=== PATIENT | male | born 1955 | race Caucasian/White ===

== ENCOUNTER 2020-10-12 13:59 | Inpatient (IN) | payer BC, OTHER ==
--- NOTE | 2020-10-12 14:42 | EDM.PDOC ---
ED HPI GENERAL MEDICAL PROBLEM - General Chief Complaint: Skin Complaint Stated Complaint: ABSCESS ON ANKLE SENT BY CLINIC Time Seen by Provider: 10/12/20 14:46 Source of Information: Reports: Patient History Limitations: Reports: No Limitations - History of Present Illness INITIAL COMMENTS - FREE TEXT/NARRATIVE: 64-year-old male [facility] [place]. The history suggest that he has had a chronic ulceration posterior aspect of his right heel near the insertion of the Achilles tendon for several months if not years. 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 When he presented to the clinic today he was mostly for pain control. He reports pain is getting worse in the right heel. He was started on tramadol in the past with no relief. They felt his wound looked much more angry and infected today and thus sent him to the ED for further evaluation. Patient has inflammation erythema over both anterior knees I suspect he is following with friction blisters to initiate ulceration and infection in this area as well. Apparently had a incision and drainage of infected sebaceous cyst anterior left knee in August of this year. Both lower extremities are edematous and very painful to touch worse on the right as compared to the left. The ulceration on the back of his right heel is greater than 8 cm in diameter. It is full-thickness ulceration however the Achilles tendon and fascia are not clinically involved. Plan routine labs to be done to include a glycosylated protein is has been told that he has diabetes and then told that he does not etc. Patient clinically has rosacea involving his face treated with various antibiotics. Onset: Gradual, Unknown/Unsure (At least 2 to 3 months. 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 Denies: Activity, Exercise, Lifting, Sick Contact, Trauma Associated Symptoms: Reports: Cough, cough w sputum, Malaise, Shortness of B reath. Denies: Confusion, Chest Pain, Diaphoresis (Chronic cough from smoking. Occasional brown sputum production.), Fever/Chills, Headaches, Loss of Appetite, Nausea/Vomiting, Rash (On exertion.), Seizure, Syncope, Weakness Treatments DIRECTOR ENERGY: Reports: Other (see below) (Patient is on gabapentin 3 times daily for neurogenic pain in his feet.) Right Ankle Pain Score (Numeric/FACES): 9 - Related Data Allergies Allergy/AdvReac Type Severity Reaction Status Date / Time bee venom protein (honey bee) Allergy Other Verified 10/12/20 18:50 poison oak extract Allergy Other Verified 10/12/20 18:50 Home Meds: Home Meds Amitriptyline [Elavil] 50 mg PO BEDTIME 10/12/20 [History] Aspirin [Halfprin] 81 mg PO Q24H 10/12/20 [History] Cholecalciferol (Vitamin D3) [Vitamin D3] 1,000 mcg PO ASDIRECTED 10/12/20 [History] Cyclobenzaprine [Flexeril] 10 mg PO TID PRN 10/12/20 [History] DULoxetine HCl [Cymbalta] 60 mg PO Q24H 10/12/20 [History] Folic Acid 800 mcg PO DAILY 10/12/20 [History] Gabapentin [Neurontin] 300 mg PO BID 10/12/20 [History] Ibuprofen 400 mg PO DAILY PRN 10/12/20 [History] Methotrexate 20 mg PO WEEKLY 10/12/20 [History] Niacin [Niacin ER] 1,000 mg PO DAILY 10/12/20 [History] Nystatin [Nystatin Crm] 1 applic TOP BID PRN 10/12/20 [History] Patient's Own Medication [Ptom] 15 ml SSPIT Q6H PRN 10/12/20 [History] QUEtiapine Fumarate [Quetiapine Fumarate] 300 mg PO Q24H 10/12/20 [History] Rosuvastatin Calcium 20 mg PO BEDTIME 10/12/20 [History] atenoloL [Tenormin] 50 mg PO PCDINNER 10/12/20 [History] hydrOXYzine HCL [Hydroxyzine HCl] 50 mg PO DAILY 10/12/20 [History] metFORMIN HCl [Glucophage] 1,000 mg PO BIDMEALS 10/12/20 [History] Past Medical History Cardiovascular History: Reports: Hypertension, GA, Stents Respiratory History: Reports: COPD ([id number] history of cigarette smoking) Genitourinary History: Reports: BPH Musculoskeletal History: Reports: Osteoarthritis Other Musculoskeletal History: Previous fractured pelvis treated nonoperatively. Severe degenerative arthritis and disc disease cervical spine with cervical spine surgery and I believe fusion. Psychiatric History: Reports: Addiction (Alcohol), Mood Swings (Labeled as having a mood disorder.) Social & Family History - Tobacco Use Tobacco Use Status *Q: Current Every Day Tobacco User Tobacco Use Within Last Twelve Months: Cigarettes ([id number] history.) - Alcohol Use Alcohol Use History: Yes Days Per Week of Alcohol Use: 7 - Living Situation & Occupation Living situation: Reports: Single Occupation: Retired ED ROS GENERAL - Review of Systems Review Of Systems: See Below Constitutional: Reports: Malaise. Denies: Fever, Chills, Decreased Appetite, Weight Loss HEENT: Reports: Glasses (For reading.) Respiratory: Reports: Shortness of Breath, Wheezing, Cough. Denies: Pleuritic Chest Pain (Occasional wheezing), Hemoptysis (Smoker's cough. Occasional brown sputum production) Cardiovascular: Reports: Blood Pressure Problem, Dyspnea on Exertion, Edema (Both lower extremities which he states is improved first thing in the morning but returns within the hour of being up for the day.). Denies: Chest Pain, Cl audication, Lightheadedness, Orthopnea, Palpitations Endocrine: Reports: Polyuria GI/Abdominal: Reports: Constipation (Occasional problems with constipation.) : Reports: Frequency, Other (Denies any nocturia.) Musculoskeletal: Reports: Neck Pain, Shoulder Pain, Back Pain, Joint Pain (Knees and hips at times.) Skin: Reports: Erythema (Both lower extremities are warm to touch and tender to touch. Right is worse than the left. Both feet and lower extremities are edematous with 3-4+ pitting edema), Wound (Chronic ulcerated wound posterior right heel for at least 2 to 3 months. Apparently erythema and ulceration anterior aspect of both knees for the last 2 to 3 months as well. Hard to nail down the duration of ulceration.) Neurological: Reports: Paresthesia (Intermittent severe lancinating shooting pains suggesting neurogenic etiology of pain in both lower extremities.), Difficulty Walking (Patient has been unable to wear shoe for several months. He recently bought some crocs with open heel so that he can weight-bear but even that is very painful today.) Psychiatric: Reports: Mood Lability, Other (Suspect). Denies: Hallucinations Hematologic/Lymphatic: Reports: No Symptoms ( chronic alcohol use.) Immunologic: Reports: No Symptoms ED EXAM, SKIN/RASH Exam: See Below Exam Limited By: No Limitations General Appearance: Alert, WD/WN, Mild Distress, Other (Patient has a very ruborous complexion. Clinically he has rosacea involving his forehead nose and facial cheeks. Temperature was 38.2 degrees with a heart rate of 110. Respiratory to 20 with O2 sats of 95%. BP mildly elevated 1 5596.) Eye Exam: Bilateral Eye: Normal Inspection (No scleral icterus or blepharal pallor.), PERRL Nose: Other (Rosacea over his nose with erythema and mild rhinophyma.) Throat/Mouth: Other (Tongue is mildly dry and coated. Mild diffuse erythema of the posterior oropharynx from cigarette smoking.). No: Normal Teeth Head: Atraumatic, Normocephalic Neck: Limited Range of Motion, Tender Lateral, Other (Midline surgical scar from previous cervical spine surgery.). No: Full Range of Motion Respiratory/Chest: No Accessory Muscle Use, Respiratory Distress, Decreased Breath Sounds (Mild tachypnea at rest.), Wheezing ( Decreased air entry at the lower 30% lung null bilaterally.). No: Lungs Clear, Normal Breath Sounds, R ales, Rhonchi ( Scattered expiratory wheezes posterior lung null.) Cardiovascular: No Gallop, No Murmur, No Rub, Tachycardia (Sinus tachycardia at the bedside of 110 to 114/min). No: Normal Peripheral Pulses (No pulses could be palpated in either foot partial limited by pain but also marked edema both lower extremities.), No Edema Peripheral Pulses: 2+: Carotid (L), Carotid (R), Radial (L), Radial (R), Popliteal (L), Popliteal (R) GI/Abdominal: Normal Bowel Sounds, Soft, Non-Tender, No Organomegaly, No Mass, Pelvis Stable, Hernia, Other (Left inguinal hernia. Patient has diastases recti of the upper abdominal muscles. Does have lymphadenopathy mildly tender right inguinal area) Back Exam: Decreased Range of Motion (Patient had pain even sitting up in the bed, look at his back and listen to lung sounds.) Extremities: Increased Warmth (Both lower extremities up to the tibial tuberosities bilaterally. There is also mild tenderness over the erythema over the patella and ulcerations over both legs.), Other (Patient has 3+ to 4+ pitting edema both lower extremities. Up to the knees bilaterally. There is erythema over both knees with ulcerations both knees measuring 2 cm in length and width. They appear to be full-thickness ulcerations with secondary i nfection. The right heel has an 8 cm full-thickne) Neurological: Alert, Oriented, CN II-XII Intact, Normal Cognition Psychiatric: Normal Affect, Normal Mood Skin: Warm, Dry, Intact, Decubitus (Over the right heel at the insertion of the Achilles tendon.), Erythema, Increased Warmth. No: Mottled, Pallor, Wound/Incision Location, Skin: Lower Extremity, Right (Cellulitis over the right knee and right), Lower Extremity, Left (Erythema and ulceration over the left patella and knee.) Characteristics: Other (Ulcerations over both anterior knees as well as right posterior heel) #1 Interpretation EKG Date: 10/12/20 Time: 16:23 Rhythm: Other Rate (Beats/Min): 104 [place]: LAD-Left [place] Deviation (Mild left axis deviation -11 degrees) P-Wave: Enlarged (Left atrial hypertrophy) QRS: Other (Mildly decreased voltage limb leads Q waves leads V1 V2 compared with old anteroseptal myocardial infarction) ST-T: Other (Nonspecific T wave flattening lead III and aVL also lead V2.) QT: Normal EKG Interpretation Comments: Abnormal ECG Course - Vital Signs Last Recorded V/S: Last Vital Signs Temp 36.7 C 10/12/20 18:23 Pulse 103 H 10/12/20 18:23 Resp 16 10/12/20 18:23 BP 139/76 10/12/20 18:23 Pulse Ox 94 L 10/12/20 18:23 - Orders/Labs/Meds Orders: Active Orders 24 hr Category Date Time Status CULTURE BLOOD [BC] Stat Lab 10/12/20 15:05 Received CULTURE BLOOD [BC] Stat Lab 10/12/20 15:10 Received Sodium Chloride 0.9% [Saline Flush] Med 10/12/20 14:48 Active 10 ml FLUSH ASDIRECTED PRN Blood Culture x2 Reflex Set [OM.PC] Stat Oth 10/12/20 14:48 Ordered Peripheral IV Insertion Adult [OM.PC] Stat Ot 10/12/20 14:47 Ordered Medication Orders Acetaminophen (Acetaminophen 325 Mg Tab) 650 mg PO Q4H PRN PRN Reason: Pain (Mild 1-3)/fever Albuterol/Ipratropium (Albuterol/Ipratropium 3.0-0.5 Mg/3 Ml Neb Soln) 3 ml NEB Q4H PRN PRN Reason: Shortness Of Breath/wheezing Amitriptyline HCl (Amitriptyline 25 Mg Tab) 50 mg PO BEDTIME [facility] Aspirin (Aspirin 81 Mg Tab.Ec) 81 mg PO Q24H [facility] Atenolol (Atenolol 50 Mg Tab) 50 mg PO PCDINNER [facility] Folic Acid (Folic Acid 1 Mg Tab) 0.8 mg PO DAILY [facility] Gabapentin (Gabapentin 300 Mg Cap) 300 mg PO BID [facility] Heparin Sodium (Porcine) (Heparin Sodium 5,000 Units/Ml Vial) 5,000 units SUBCUT Q8H [facility] Hydromorphone HCl (Hydromorphone 0.5 Mg/0.5 Ml Syringe) 0.5 mg IVPUSH Q1H PRN PRN Reason: Pain (severe 7-10) Hydroxyzine HCl (Hydroxyzine Hcl 50 Mg Tab) 50 mg PO DAILY [facility] Magnesium Sulfate/Dextrose 1 (gm/ Premix) 100 mls @ 100 mls/hr IV Q1H [facility] Stop: 10/12/20 21:19 Piperacillin Sod/Tazobactam (Sod 4.5 gm/ Sodium Chloride) 100 mls @ 200 mls/hr IV ONETIME ONE Stop: 10/12/20 20:59 Last Admin: 10/12/20 20:21 Dose: 200 mls/hr Documented by: NATI Piperacillin Sod/Tazobactam (Sod 4.5 gm/ Sodium Chloride) 100 mls @ 25 mls/hr IV Q8H [facility] Insulin Human Lispro (Insulin Lispro 100 Unit/Ml 10 Ml Vial) 0 unit SUBCUT QIDACANDBED [facility]; Protocol Miscellaneous Information (Remove Nicotine 14 Mg Patch) 1 ea TRDERM DAILY@1900 [facility] Nicotine (Nicotine 14 Mg/24 Hr Patch) 14 mg TRDERM DAILY@1900 [facility] Last Admin: 10/12/20 20:26 Dose: Not Given Documented by: KAEL Non-Formulary Medication (Duloxetine Hcl) 60 mg PO Q24H [facility] Non-Formulary Medication (Niacin [Niacin Er]) 1,000 mg PO DAILY [facility] Ondansetron HCl (Ondansetron 4 Mg Tab.Dis) 4 mg PO Q4H PRN PRN Reason: nausea, able to take PO Ondansetron HCl (Ondansetron 4 Mg/2 Ml Sdv) 4 mg IV Q6H PRN PRN Reason: Nausea/Vomiting Oxycodone HCl (Oxycodone 5 Mg Tab) 5 mg PO Q4H PRN PRN Reason: Pain (moderate 4-6) Quetiapine Fumarate (Quetiapine 100 Mg Tab) 300 mg PO Q24H [facility] Rosuvastatin Calcium (Rosuvastatin 10 Mg Tab) 20 mg PO BEDTIME [facility] Sodium Chloride (Sodium Chloride 0.9% 10 Ml Syringe) 10 ml FLUSH ASDIRECTED PRN PRN Reason: Keep Vein Open Last Admin: 10/12/20 15:20 Dose: 10 ml Documented by: BRENDAN Temazepam (Temazepam 7.5 Mg Cap) 7.5 mg PO BEDTIME PRN PRN Reason: Sleep Vancomycin HCl (Pharmacy To Dose - Vancomycin) 1 dose .XX ASDIRECTED [facility] Labs: Laboratory Tests 10/12/20 10/12/20 10/12/20 Range/Units 14:30 14:30 14:30 WBC 4.94 (4.23-9.07) K/mm3 RBC 3.20 L (4.63-6.08) M/mm3 Hgb 12.2 L (13.7-17.5) gm/dl Hct 34.9 L (40.1-51.0) % MCV 109.1 H (79.0-92.2) fl MCH 38.1 H (25.7-32.2) pg MCHC 35.0 (32.2-35.5) g/dl RDW Std Deviation 69.2 H (35.1-43.9) fL Plt Count 100 L (163-337) K/mm3 MPV 9.8 (9.4-12.3) fl Neutrophils % (Manual) 89 H (40-60) % Band Neutrophils % 1 (0-10) % Lymphocytes % (Manual) 8 L (20-40) % Atypical Lymphs % 0 % Monocytes % (Manual) 0 L (2-10) % Eosinophils % (Manual) 2 (0.8-7.0) % Basophils % (Manual) 0 L (0.2-1.2) Platelet Estimate Decreased Plt Morphology Comment See note Anisocytosis 1+ slight Macrocytosis 1+ slight RBC Morph Comment Not Reportable ESR 28 H (0-15) mm/hr Sodium 135 L (136-145) mEq/L Potassium 3.7 (3.5-5.1) mEq/L Chloride 100 (98-107) mEq/L Carbon Dioxide 24 (21-32) mEq/L Anion Gap 14.7 (5-15) BUN 12 (7-18) mg/dL Creatinine 0.9 (0.7-1.3) mg/dL Est Cr Clr Drug Dosing 84.49 mL/min Estimated GFR (MDRD) > 60 (>60) mL/min BUN/Creatinine Ratio 13.3 L (14-18) Glucose 154 H (70-99) mg/dL Hemoglobin A1c ( - 5.6) % Lactic Acid (0.4-2.0) mmol/L Calcium 8.3 L (8.5-10.1) mg/dL Magnesium 1.6 L (1.8-2.4) mg/dL Total Bilirubin 1.2 H (0.2-1.0) mg/dL AST 51 H (15-37) U/L ALT 66 H (16-63) U/L Alkaline Phosphatase 81 (46-116) U/L C-Reactive Protein 8.1 H* (<1.0) mg/dL NT-Pro-B Natriuret Pep (0-125) pg/mL Total Protein 6.6 (6.4-8.2) g/dl Albumin 3.1 L (3.4-5.0) g/dl Globulin 3.5 gm/dL Albumin/Globulin Ratio 0.9 L (1-2) Ethyl Alcohol 0.00 (0.00) gm% SARS-CoV-2 RNA (SUSAN) (NEGATIVE) 10/12/20 10/12/20 10/12/20 Range/Units 14:30 14:30 15:10 WBC (4.23-9.07) K/mm3 RBC (4.63-6.08) M/mm3 Hgb (13.7-17.5) gm/dl Hct (40.1-51.0) % MCV (79.0-92.2) fl MCH (25.7-32.2) pg MCHC (32.2-35.5) g/dl RDW Std Deviation (35.1-43.9) fL Plt Count (163-337) K/mm3 MPV (9.4-12.3) fl Neutrophils % (Manual) (40-60) % Band Neutrophils % (0-10) % Lymphocytes % (Manual) (20-40) % Atypical Lymphs % % Monocytes % (Manual) (2-10) % Eosinophils % (Manual) (0.8-7.0) % Basophils % (Manual) (0.2-1.2) Platelet Estimate Plt Morphology Comment Anisocytosis Macrocytosis RBC Morph Comment ESR (0-15) mm/hr Sodium (136-145) mEq/L Potassium (3.5-5.1) mEq/L Chloride (98-107) mEq/L Carbon Dioxide (21-32) mEq/L Anion Gap (5-15) BUN (7-18) mg/dL Creatinine (0.7-1.3) mg/dL Est Cr Clr Drug Dosing mL/min Estimated GFR (MDRD) (>60) mL/min BUN/Creatinine Ratio (14-18) Glucose (70-99) mg/dL Hemoglobin A1c 7.1 H ( - 5.6) % Lactic Acid 1.1 (0.4-2.0) mmol/L Calcium (8.5-10.1) mg/dL Magnesium (1.8-2.4) mg/dL Total Bilirubin (0.2-1.0) mg/dL AST (15-37) U/L ALT (16-63) U/L Alkaline Phosphatase (46-116) U/L C-Reactive Protein (<1.0) mg/dL NT-Pro-B Natriuret Pep 21 (0-125) pg/mL Total Protein (6.4-8.2) g/dl Albumin (3.4-5.0) g/dl Globulin gm/dL Albumin/Globulin Ratio (1-2) Ethyl Alcohol (0.00) gm% SARS-CoV-2 RNA (SUSAN) (NEGATIVE) 10/12/20 Range/Units 15:25 WBC (4.23-9.07) K/mm3 RBC (4.63-6.08) M/mm3 Hgb (13.7-17.5) gm/dl Hct (40.1-51.0) % MCV (79.0-92.2) fl MCH (25.7-32.2) pg MCHC (32.2-35.5) g/dl RDW Std Deviation (35.1-43.9) fL Plt Count (163-337) K/mm3 MPV (9.4-12.3) fl Neutrophils % (Manual) (40-60) % Band Neutrophils % (0-10) % Lymphocytes % (Manual) (20-40) % Atypical Lymphs % % Monocytes % (Manual) (2-10) % Eosinophils % (Manual) (0.8-7.0) % Basophils % (Manual) (0.2-1.2) Platelet Estimate Plt Morphology Comment Anisocytosis Macrocytosis RBC Morph Comment ESR (0-15) mm/hr Sodium (136-145) mEq/L Potassium (3.5-5.1) mEq/L Chloride (98-107) mEq/L Carbon Dioxide (21-32) mEq/L Anion Gap (5-15) BUN (7-18) mg/dL Creatinine (0.7-1.3) mg/dL Est Cr Clr Drug Dosing mL/min Estimated GFR (MDRD) (>60) mL/min BUN/Creatinine Ratio (14-18) Glucose (70-99) mg/dL Hemoglobin A1c ( - 5.6) % Lactic Acid (0.4-2.0) mmol/L Calcium (8.5-10.1) mg/dL Magnesium (1.8-2.4) mg/dL Total Bilirubin (0.2-1.0) mg/dL AST (15-37) U/L ALT (16-63) U/L Alkaline Phosphatase (46-116) U/L C-Reactive Protein (<1.0) mg/dL NT-Pro-B Natriuret Pep (0-125) pg/mL Total Protein (6.4-8.2) g/dl Albumin (3.4-5.0) g/dl Globulin gm/dL Albumin/Globulin Ratio (1-2) Ethyl Alcohol (0.00) gm% SARS-CoV-2 RNA (SUSAN) Negative (NEGATIVE) Meds: Medications Generic Name Dose Route Start Last Admin Trade Name Freq PRN Reason Stop Dose Admin Acetaminophen 650 mg 10/12/20 18:31 Acetaminophen 325 Mg Tab PO Q4H PRN Pain (Mild 1-3)/fever Albuterol/Ipratropium 3 ml 10/12/20 18:31 Albuterol/Ipratropium 3.0-0.5 Mg/3 Ml Neb Soln NEB Q4H PRN Shortness Of Breath/wheezing Amitriptyline HCl 50 mg 10/12/20 21:00 Amitriptyline 25 Mg Tab PO BEDTIME [facility] Aspirin 81 mg 10/13/20 08:00 Aspirin 81 Mg Tab.Ec PO Q24H [facility] Atenolol 50 mg 10/13/20 19:00 Atenolol 50 Mg Tab PO PCDINNER [facility] Folic Acid 0.8 mg 10/13/20 09:00 Folic Acid 1 Mg Tab PO DAILY [facility] Gabapentin 300 mg 10/12/20 21:00 Gabapentin 300 Mg Cap PO BID [facility] Heparin Sodium (Porcine) 5,000 units 10/12/20 21:00 Heparin Sodium 5,000 Units/Ml Vial SUBCUT Q8H [facility] Hydromorphone HCl 0.5 mg 10/12/20 18:31 Hydromorphone 0.5 Mg/0.5 Ml Syringe IVPUSH Q1H PRN Pain (severe 7-10) Hydroxyzine HCl 50 mg 10/13/20 09:00 Hydroxyzine Hcl 50 Mg Tab PO DAILY [facility] Magnesium Sulfate/Dextrose 1 100 mls @ 100 mls/hr 10/12/20 20:20 gm/ Premix IV 10/12/20 21:19 Q1H [facility] Piperacillin Sod/Tazobactam 100 mls @ 200 mls/hr 10/12/20 20:30 10/12/20 20:21 Sod 4.5 gm/ Sodium Chloride IV 10/12/20 20:59 200 mls/hr ONETIME ONE Administration Piperacillin Sod/Tazobactam 100 mls @ 25 mls/hr 10/13/20 04:30 Sod 4.5 gm/ Sodium Chloride IV Q8H [facility] Insulin Human Lispro 0 unit 10/12/20 22:00 Insulin Lispro 100 Unit/Ml 10 Ml Vial SUBCUT QIDACANDBED [facility] Protocol Miscellaneous Information 1 ea 10/13/20 19:00 Remove Nicotine 14 Mg Patch TRDERM DAILY@1900 [facility] Nicotine 14 mg 10/12/20 19:00 10/12/20 20:26 Nicotine 14 Mg/24 Hr Patch TRDERM Not Given DAILY@1900 [facility] Non-Formulary Medication 60 mg 10/13/20 08:00 Duloxetine Hcl PO Q24H [facility] Non-Formulary Medication 1,000 mg 10/13/20 09:00 Niacin [Niacin Er] PO DAILY [facility] Ondansetron HCl 4 mg 10/12/20 18:31 Ondansetron 4 Mg Tab.Dis PO Q4H PRN nausea, able to take PO Ondansetron HCl 4 mg 10/12/20 18:31 Ondansetron 4 Mg/2 Ml Sdv IV Q6H PRN Nausea/Vomiting Oxycodone HCl 5 mg 10/12/20 18:31 Oxycodone 5 Mg Tab PO Q4H PRN Pain (moderate 4-6) Quetiapine Fumarate 300 mg 10/12/20 20:00 Quetiapine 100 Mg Tab PO Q24H [facility] Rosuvastatin Calcium 20 mg 10/12/20 21:00 Rosuvastatin 10 Mg Tab PO BEDTIME [facility] Sodium Chloride 10 ml 10/12/20 14:48 10/12/20 15:20 Sodium Chloride 0.9% 10 Ml Syringe FLUSH 10 ml ASDIRECTED PRN Administration Keep Vein Open Temazepam 7.5 mg 10/12/20 18:31 Temazepam 7.5 Mg Cap PO BEDTIME PRN Sleep Vancomycin HCl 1 dose 10/12/20 19:15 Pharmacy To Dose - Vancomycin .XX ASDIRECTED [facility] Discontinued Medications Generic Name Dose Route Start Last Admin Trade Name Freq PRN Reason Stop Dose Admin Hydromorphone HCl 1 mg 10/12/20 16:01 10/12/20 16:07 Hydromorphone 1 Mg/Ml Syringe IVPUSH 10/12/20 16:02 1 mg ONETIME ONE Administration Hydromorphone HCl 0.5 mg 10/12/20 17:47 10/12/20 17:52 Hydromorphone 0.5 Mg/0.5 Ml Syringe IVPUSH 10/12/20 17:48 0.5 mg ONETIME ONE Administration Sodium Chloride 1,000 mls @ 150 mls/hr 10/12/20 15:00 10/12/20 15:20 Normal Saline IV 150 mls/hr ASDIRECTED [facility] Administration Linezolid 600 mg/ Premix 300 mls @ 300 mls/hr 10/12/20 14:48 10/12/20 15:19 IV 10/12/20 15:47 300 mls/hr ONETIME ONE Administration Piperacillin Sod/Tazobactam 100 mls @ 25 mls/hr 10/12/20 19:00 10/12/20 20:25 Sod 3.375 gm/ Sodium Chloride IV Not Given Q8H [facility] Piperacillin Sod/Tazobactam 100 mls @ 25 mls/hr 10/13/20 04:00 Sod 3.375 gm/ Sodium Chloride IV Q8H [facility] Ondansetron HCl 4 mg 10/12/20 16:01 10/12/20 16:06 Ondansetron 4 Mg/2 Ml Sdv IVPUSH 10/12/20 16:02 4 mg ONETIME ONE Administration - Radiology Interpretation Free Text/Narrative:: 64-year-old male presents to the ED at the request of the [place] clinic here in [place]. By history he has a chronic infected ulcer right posterior heel at the distribution of the Achilles tendon insertion into his calcaneus. By history has had this for several months and perhaps even years. Patient has erythema and ulceration over both patellas as well. He denies any recent falls or injuries. Patient denies any noted fever chills nausea or vomiting. He smokes a pack of cigarettes daily and does have a chronic smoker's cough. Patient has been treated apparently with several courses of antibiotics without improvement. Currently pain is bad enough in his right lower extremity that he can hardly stand it. He has been treated with tramadol which he states did not help at all. - Re-Assessments/Exams Free Text/Narrative Re-Assessment/Exam: 10/12/20 16:03 White count is normal at 4.94. The differential reveals 89% neutrophils and 1% bands cells. Hemoglobin is 12.2 with hematocrit of 34.9. MCV is elevated at 109.1 suggesting he drinks alcohol on a very regular basis. Platelet count is low at 100,000. Sed rate is 28. Sodium slightly low at 135 with a potassium of 3.7. Chloride 100 with a bicarb of 24. Anion gap is normal at 14.7. BUN is 12 with a creatinine of 0.9 and a GFR greater than 60. Glucose is 154. Hemoglobin A1c is 7.1 indicating that he does have mild type 2 diabetes. Lactic acid is 1.1. Calcium is 8.3. Magnesium low at 1.6. Total bilirubin is 1.2 mildly elevated. AST slightly elevated at 51 and ALT is mildly elevated at 66. Alkaline phosphatase is 81. C-reactive protein is elevated at 8.1. BNP is 21. Albumin fraction is low at 3.1 with a total protein is 6.6. Blood alcohol at this time is 0.00. Decision made to pursue imaging of the right foot by way of CT scan to rule out osteomyelitis as MRI is currently not available. 10/12/20 17:30 chest x-ray done portably reveals a slight groundglass appearance to the left lower lobe of the lung. Cardiac silhouette and mediastinum appear normal. Mild tortuous thoracic aorta appreciated. No pleural effusions. No pneumothorax. Of note is COVID-[address] of the right foot has been completed. On my evaluation I do not see any evidence of bone involvement or osteomyelitis. No periosteal reaction. No evidence of underlying fracture. There is soft tissue inflammation at the site of the ulcer posterior aspect of the right heel. Skin defect is believed visualized in the sagittal projection. The skin defect is at the level of the distal Achilles tendon. The Achilles tendon may be exposed or nearly exposed. No soft tissue gas in the region. No soft tissue gas elsewhere. The Achilles tendon appears intact. There is diffuse subcutaneous edema throughout the [id number] particularly on the dorsum of the foot. No circumscribed fluid collection suspect for abscess is identified. 10/12/20 17:46 I have discussed the findings with the patient and identified the need to come into the hospital. I propose that he stays until blood culture results are back. It is likely methicillin-resistant staph aureus infection. Lab test done today confirm that he is indeed a type II diabetic. He relates to me now that when he was in [place] he did see a dietitian and got him started on a low-carb diet with emphasis to try and lose some weight. I have discussed the case with Dr Sher --on-call hospitalist and he will see the patient on the med surgery floor. In the meantime we will order him a diabetic diet as it will be a while to he can be admitted. He still having pain which she relates is 4-5 out of 10 in his right heel. We will give Dilaudid 0.5 mg IV for pain relief. He states he got good relief with the initial dose of Dilaudid 1 mg IV. I believe the patient would benefit from an increased dose of his gabapentin to help with pain control as he does have a component of neuropathy with sharp lancinating shooting pain in both lower extremities at times. Departure - Departure Time of Disposition: 18:10 Disposition: Admitted As Inpatient 65 Condition: Fair Clinical Impression: Decubitus ulcer of right heel, stage 3, Dependent edema, Chronic pain syndrome, Cellulitis Cellulitis of lower extremity Qualifiers: Laterality: right Qualified Code(s): L03.115 - Cellulitis of right lower limb Type 2 diabetes mellitus Qualifiers: Diabetes mellitus rodent exterminator insulin use: without alf use Diabetes mellitus complication status: with skin complications Diabetes mellitus complication detail: with foot ulcer Qualified Code(s): E11.621 - Type 2 diabetes mellitus with foot ulcer Coronary artery disease Qualifiers: Coronary Disease-Associated Artery/Lesion type: [place] artery [place] vs. transplanted heart: [place] heart Associated angina: without angina Qualified Code(s): I25.10 - Atherosclerotic heart disease of [place] coronary artery without angina pectoris COPD (chronic obstructive pulmonary disease) Qualifiers: COPD type: emphysema - Discharge Information *PRESCRIPTION DRUG MONITORING PROGRAM REVIEWED*: Not Applicable *COPY OF PRESCRIPTION DRUG MONITORING REPORT IN PATIENT MAURI: Not Applicable Sepsis Event Note (ED) - Evaluation Sepsis Screening Result: Possible Sepsis Risk - Focused Exam Vital Signs: Vital Signs Temp Pulse Resp BP 10/12/20 14:10 38.2 C H 110 H 20 155/96 H - My Orders Last 24 Hours: My Active Orders 10/12/20 14:47 Peripheral IV Insertion Adult [OM.PC] Stat 10/12/20 14:48 Sodium Chloride 0.9% [Saline Flush] 10 ml FLUSH ASDIRECTED PRN Blood Culture x2 Reflex Set [OM.PC] Stat 10/12/20 15:05 CULTURE BLOOD [BC] Stat 10/12/20 15:10 CULTURE BLOOD [BC] Stat - Assessment/Plan Last 24 Hours: My Active Orders 10/12/20 14:47 Peripheral IV Insertion Adult [OM.PC] Stat 10/12/20 14:48 Sodium Chloride 0.9% [Saline Flush] 10 ml FLUSH ASDIRECTED PRN Blood Culture x2 Reflex Set [OM.PC] Stat 10/12/20 15:05 CULTURE BLOOD [BC] Stat 10/12/20 15:10 CULTURE BLOOD [BC] Stat
[2020-10-12] MEDS ORDERED: Linezolid 600 MG in Premix Bag 1 BAG IV ONE (14:48)
[2020-10-12] MEDS ORDERED: Sodium Chloride 0.9% 10 ML Syringe FLUSH PRN (14:48)
[2020-10-12] MEDS ORDERED: Sodium Chloride 0.9% 1,000 ML IV SCH (15:00)
[2020-10-12 15:15] LABS: HEMOGLOBIN A1C 7.1 %
[2020-10-12] MEDS ORDERED: Ondansetron 4 MG/2 ML SDV IVPUSH ONE (16:01)
[2020-10-12] MEDS ORDERED: HYDROmorphone 1 MG/ML Syringe IVPUSH ONE (16:01)
[2020-10-12] MEDS ORDERED: HYDROmorphone 0.5 MG/0.5 ML Syringe IVPUSH ONE (17:47)
[2020-10-12] MEDS ORDERED: Albuterol/Ipratropium 3.0-0.5 MG/3 ML Neb Soln NEB PRN (18:31)
[2020-10-12] MEDS ORDERED: Temazepam 7.5 MG Cap PO PRN (18:31)
[2020-10-12] MEDS ORDERED: Acetaminophen 325 MG Tab PO PRN (18:31)
[2020-10-12] MEDS ORDERED: HYDROmorphone 0.5 MG/0.5 ML Syringe IVPUSH PRN (18:31)
[2020-10-12] MEDS ORDERED: Ondansetron 4 MG/2 ML SDV IV PRN (18:31)
[2020-10-12] MEDS ORDERED: Ondansetron 4 MG Tab.DIS PO PRN (18:31)
[2020-10-12] MEDS ORDERED: Piperacillin/Tazobactam 3.375 GM in Sodium Chloride 0.9% 100 ML IV SCH (19:00)
--- NOTE | 2020-10-12 19:15 | PCM.HP.2 ---
H&P History of Present Illness - General Date of Service: 10/12/20 Admit Problem/Dx: Admission Diagnosis/Problem Admission Diagnosis/Problem Cellulitis Source of Information: Patient - History of Present Illness Initial Comments - Free Text/Narative: CC: ankle pain JAVIER This is a 64M with hx of Type II DM (A1c 7.1), CAD, COPD, BPH, Peripheral neuropathy presenting from [facility] for evaluation of right heal ulcer with concerns for cellulitis. The patient states he first developed ulceration on his right ankle/heal about 3 weeks ago. He denies any trauma. Over the last 3 weeks the ulceration progressively worsened. He noted purulent drainage. He endorses neuropathic pain that he describes as sharp pain. He has not had any medical treatment until today. He has not been on any antibiotic therapy. He presented to ED where CT right lower extremity was obtained. He was started on linezolid and admitted for further evaluation. He currently denies chest pain, sob, ejssica sea, vomiting, abdominal pain. ROS: 12 point ROS is negative except as noted in hip PMHX Hx of COPD Hx of Type II DM A1c 7.1 Hx of peripheral neuropathy Hx of BPH Hx of chronic pain Syndrome Hx of CAD Hx of Psoriasis Tobacco use disorder Thrombocytopenia Past Surgical Hx Hx of C5-C6 Fusion Hx of PCI/CAD Stenting Social Hx Lives Alone, retired, [employer], denies active tobacco use, social alcohol consumption Fam Hx noncontributory to current Illness States he does not know Medical Hx of Father and Mother Right Ankle Pain Score (Numeric/FACES): 9 - Related Data Allergies/Adverse Reactions: Allergies Allergy/AdvReac Type Severity Reaction Status Date / Time bee venom protein (honey bee) Allergy Other Verified 10/12/20 18:50 poison oak extract Allergy Other Verified 10/12/20 18:50 Home Medications: Home Meds Amitriptyline [Elavil] 50 mg PO BEDTIME 10/12/20 [History] Aspirin [Halfprin] 81 mg PO Q24H 10/12/20 [History] Cholecalciferol (Vitamin D3) [Vitamin D3] 1,000 mcg PO ASDIRECTED 10/12/20 [History] Cyclobenzaprine [Flexeril] 10 mg PO TID PRN 10/12/20 [History] DULoxetine HCl [Cymbalta] 60 mg PO Q24H 10/12/20 [History] Folic Acid 800 mcg PO DAILY 10/12/20 [History] Gabapentin [Neurontin] 300 mg PO BID 10/12/20 [History] Ibuprofen 400 mg PO DAILY PRN 10/12/20 [History] Methotrexate 20 mg PO WEEKLY 10/12/20 [History] Niacin [Niacin ER] 1,000 mg PO DAILY 10/12/20 [History] Nystatin [Nystatin Crm] 1 applic TOP BID PRN 10/12/20 [History] Patient's Own Medication [Ptom] 15 ml SSPIT Q6H PRN 10/12/20 [History] QUEtiapine Fumarate [Quetiapine Fumarate] 300 mg PO Q24H 10/12/20 [History] Rosuvastatin Calcium 20 mg PO BEDTIME 10/12/20 [History] atenoloL [Tenormin] 50 mg PO PCDINNER 10/12/20 [History] hydrOXYzine HCL [Hydroxyzine HCl] 50 mg PO DAILY 10/12/20 [History] metFORMIN HCl [Glucophage] 1,000 mg PO BIDMEALS 10/12/20 [History] Past Medical History HEENT History: Reports: Other (See Below) Other HEENT History: wear glasses and have upper/lower dentures Cardiovascular History: Reports: Hypertension, OR, Stents Respiratory History: Reports: COPD Gastrointestinal History: Reports: Other (See Below) Other Gastrointestinal History: pt states abdominal hernia Genitourinary History: Reports: BPH Musculoskeletal History: Reports: Osteoarthritis Other Musculoskeletal History: Previous fractured pelvis treated nonoperatively. Severe degenerative arthritis and disc disease cervical spine with cervical spine surgery and patient believes fusion was also done. Psychiatric History: Reports: Addiction, Mood Swings Endocrine/Metabolic History: Reports: Other (See Below) Other Endocrine/Metabolic History: patient states he has been told "his number is getting higher," for diabetes Dermatologic History: Reports: Psoriasis - Infectious Disease History Infectious Disease History: Reports: Chicken Pox, Measles Social & Family History - Family History Family Medical History: No Pertinent Family History - Tobacco Use Tobacco Use Status *Q: Current Every Day Tobacco User Years of Tobacco use: 50 Packs/Tins Daily: 1 - Caffeine Use Caffeine Use: Reports: Coffee - Alcohol Use Days Per Week of Alcohol Use: 7 - Recreational Drug Use Recreational Drug Use: Yes Recreational Drug Type: Reports: Marijuana/Hashish Recreational Drug Use Frequency: Socially - Living Situation & Occupation Living situation: Reports: Single Occupation: Retired H&P Review of Systems - Review of Systems: Review Of Systems: See Below (see above) Exam - Exam Exam: See Below - Vital Signs Vital Signs: Last Vital Signs Temp 98.1 F 10/12/20 18:23 Pulse 103 H 10/12/20 18:23 Resp 16 10/12/20 18:23 BP 139/76 10/12/20 18:23 Pulse Ox 94 L 10/12/20 18:23 Weight: 220 lb - Exam Physical Exam Comments:: Gen: Middle aged male in no acute distress HEENT: NCAT EOMI MMM Neck: supple CV: RRR normal s1 s2 Lungs: CTAB Abd: Soft, nt, nd Neuro: AOX3, CN intact, nonfocal screening exam MSK: age appropriate muscle mass Skin: psoriatic lesions of bilateral knee right heal diabetic ulcer with mild nonpurulent drainage [id number] Ext: 1+ bilateral nonpitting edema Psych: appropriate affect - Patient Data Lab Results Last 24 hrs: Laboratory Results - last 24 hr 10/12/20 10/12/20 10/12/20 Range/Units 14:30 14:30 14:30 WBC 4.94 (4.23-9.07) K/mm3 RBC 3.20 L (4.63-6.08) M/mm3 Hgb 12.2 L (13.7-17.5) gm/dl Hct 34.9 L (40.1-51.0) % MCV 109.1 H (79.0-92.2) fl MCH 38.1 H (25.7-32.2) pg MCHC 35.0 (32.2-35.5) g/dl RDW Std Deviation 69.2 H (35.1-43.9) fL Plt Count 100 L (163-337) K/mm3 MPV 9.8 (9.4-12.3) fl Neutrophils % (Manual) 89 H (40-60) % Band Neutrophils % 1 (0-10) % Lymphocytes % (Manual) 8 L (20-40) % Atypical Lymphs % 0 % Monocytes % (Manual) 0 L (2-10) % Eosinophils % (Manual) 2 (0.8-7.0) % Basophils % (Manual) 0 L (0.2-1.2) Platelet Estimate Decreased Plt Morphology Comment See note Anisocytosis 1+ slight Macrocytosis 1+ slight RBC Morph Comment Not Reportable ESR 28 H (0-15) mm/hr Sodium 135 L (136-145) mEq/L Potassium 3.7 (3.5-5.1) mEq/L Chloride 100 (98-107) mEq/L Carbon Dioxide 24 (21-32) mEq/L Anion Gap 14.7 (5-15) BUN 12 (7-18) mg/dL Creatinine 0.9 (0.7-1.3) mg/dL Est Cr Clr Drug Dosing 84.49 mL/min Estimated GFR (MDRD) > 60 (>60) mL/min BUN/Creatinine Ratio 13.3 L (14-18) Glucose 154 H (70-99) mg/dL Hemoglobin A1c ( - 5.6) % Lactic Acid (0.4-2.0) mmol/L Calcium 8.3 L (8.5-10.1) mg/dL Magnesium 1.6 L (1.8-2.4) mg/dL Total Bilirubin 1.2 H (0.2-1.0) mg/dL AST 51 H (15-37) U/L ALT 66 H (16-63) U/L Alkaline Phosphatase 81 (46-116) U/L C-Reactive Protein 8.1 H* (<1.0) mg/dL NT-Pro-B Natriuret Pep (0-125) pg/mL Total Protein 6.6 (6.4-8.2) g/dl Albumin 3.1 L (3.4-5.0) g/dl Globulin 3.5 gm/dL Albumin/Globulin Ratio 0.9 L (1-2) Ethyl Alcohol 0.00 (0.00) gm% SARS-CoV-2 RNA (SUSAN) (NEGATIVE) 10/12/20 10/12/20 10/12/20 Range/Units 14:30 14:30 15:10 WBC (4.23-9.07) K/mm3 RBC (4.63-6.08) M/mm3 Hgb (13.7-17.5) gm/dl Hct (40.1-51.0) % MCV (79.0-92.2) fl MCH (25.7-32.2) pg MCHC (32.2-35.5) g/dl RDW Std Deviation (35.1-43.9) fL Plt Count (163-337) K/mm3 MPV (9.4-12.3) fl Neutrophils % (Manual) (40-60) % Band Neutrophils % (0-10) % Lymphocytes % (Manual) (20-40) % Atypical Lymphs % % Monocytes % (Manual) (2-10) % Eosinophils % (Manual) (0.8-7.0) % Basophils % (Manual) (0.2-1.2) Platelet Estimate Plt Morphology Comment Anisocytosis Macrocytosis RBC Morph Comment ESR (0-15) mm/hr Sodium (136-145) mEq/L Potassium (3.5-5.1) mEq/L Chloride (98-107) mEq/L Carbon Dioxide (21-32) mEq/L Anion Gap (5-15) BUN (7-18) mg/dL Creatinine (0.7-1.3) mg/dL Est Cr Clr Drug Dosing mL/min Estimated GFR (MDRD) (>60) mL/min BUN/Creatinine Ratio (14-18) Glucose (70-99) mg/dL Hemoglobin A1c 7.1 H ( - 5.6) % Lactic Acid 1.1 (0.4-2.0) mmol/L Calcium (8.5-10.1) mg/dL Magnesium (1.8-2.4) mg/dL Total Bilirubin (0.2-1.0) mg/dL AST (15-37) U/L ALT (16-63) U/L Alkaline Phosphatase (46-116) U/L C-Reactive Protein (<1.0) mg/dL NT-Pro-B Natriuret Pep 21 (0-125) pg/mL Total Protein (6.4-8.2) g/dl Albumin (3.4-5.0) g/dl Globulin gm/dL Albumin/Globulin Ratio (1-2) Ethyl Alcohol (0.00) gm% SARS-CoV-2 RNA (SUSAN) (NEGATIVE) 10/12/20 Range/Units 15:25 WBC (4.23-9.07) K/mm3 RBC (4.63-6.08) M/mm3 Hgb (13.7-17.5) gm/dl Hct (40.1-51.0) % MCV (79.0-92.2) fl MCH (25.7-32.2) pg MCHC (32.2-35.5) g/dl RDW Std Deviation (35.1-43.9) fL Plt Count (163-337) K/mm3 MPV (9.4-12.3) fl Neutrophils % (Manual) (40-60) % Band Neutrophils % (0-10) % Lymphocytes % (Manual) (20-40) % Atypical Lymphs % % Monocytes % (Manual) (2-10) % Eosinophils % (Manual) (0.8-7.0) % Basophils % (Manual) (0.2-1.2) Platelet Estimate Plt Morphology Comment Anisocytosis Macrocytosis RBC Morph Comment ESR (0-15) mm/hr Sodium (136-145) mEq/L Potassium (3.5-5.1) mEq/L Chloride (98-107) mEq/L Carbon Dioxide (21-32) mEq/L Anion Gap (5-15) BUN (7-18) mg/dL Creatinine (0.7-1.3) mg/dL Est Cr Clr Drug Dosing mL/min Estimated GFR (MDRD) (>60) mL/min BUN/Creatinine Ratio (14-18) Glucose (70-99) mg/dL Hemoglobin A1c ( - 5.6) % Lactic Acid (0.4-2.0) mmol/L Calcium (8.5-10.1) mg/dL Magnesium (1.8-2.4) mg/dL Total Bilirubin (0.2-1.0) mg/dL AST (15-37) U/L ALT (16-63) U/L Alkaline Phosphatase (46-116) U/L C-Reactive Protein (<1.0) mg/dL NT-Pro-B Natriuret Pep (0-125) pg/mL Total Protein (6.4-8.2) g/dl Albumin (3.4-5.0) g/dl Globulin gm/dL Albumin/Globulin Ratio (1-2) Ethyl Alcohol (0.00) gm% SARS-CoV-2 RNA (SUSAN) Negative (NEGATIVE) Result Diagrams: 10/13/20 05:46 10/13/20 05:46 Imaging Impressions Last 24 hrs: CT right lower extremity 1. Large posterior skin defect, the achilles tendon may be exposed or nearly exp osed 2. Diffuse subcutaneous edema throughout the field of view particularly on the dorsum. Question cellulitis, lymphedema, venous stasis 3. no bone destruction Sepsis Event Note - Evaluation Sepsis Screening Result: Possible Sepsis Risk Current Stage of Sepsis: Ruled Out (normal lactate; afebrile) Reason for Ruling Out Sepsis: normal lactate; afebrile - Focused Exam Vital Signs: Vital Signs Temp Temp Pulse Pulse Resp BP BP 10/12/20 18:23 98.1 F 103 H 16 139/76 10/12/20 14:10 100.7 F H 110 H 20 155/96 H Pulse Ox 10/12/20 18:23 94 L 10/12/20 14:10 *Q Meaningful Use (ADM) - VTE *Q VTE Criteria *Q: 4 - VTE Risk Assess *Q Each Risk Factor Represents 1 Point: Other Risk Factor Total Score 1 Point Risk Factors: 1 Problem List Initiated/Reviewed/Updated: Yes Orders Last 24hrs: Active Orders 24 hr Category Date Time Status Patient Status [ADT] Routine ADT 10/12/20 18:31 Active Blood Glucose Check, Bedside [RC] WITHMEALSANDBED Care 10/12/20 18:31 Active Diabetes Education [RC] Click to Edit Care 10/12/20 18:35 Active EKG Documentation Completion [RC] STAT Care 10/12/20 16:06 Active Intake and Output [RC] QSHIFT Care 10/12/20 18:32 Active Oxygen Therapy [RC] PRN Care 10/12/20 18:31 Active Peripheral IV Care [RC] . DIRECTED Care 10/12/20 14:48 Active RT Aerosol Therapy [RC] ASDIRECTED Care 10/12/20 18:35 Active Up With Assistance [RC] ASDIRECTED Care 10/12/20 18:31 Active VTE/DVT Education [RC] PER UNIT ROUTINE Care 10/12/20 18:31 Active Vital Signs [RC] Q4H Care 10/12/20 18:31 Active Consult to Case Management/[place] Customs [employer] Officer [CONS] Cons 10/12/20 18:31 Active Routine Consult to Physical Therapy [PT Evaluation and Cons 10/12/20 18:52 Active Treatment] [CONS] Routine PT Evaluation and Treatment [CONS] Routine Cons 10/12/20 18:31 Active Consistent Carbohydrate Diet [DIET] Diet 10/12/20 Dinner Active Chest 1V Frontal [CR] Stat Exams 10/12/20 16:05 Taken Foot wo Cont Rt [CT] Stat Exams 10/12/20 16:09 Taken BASIC METABOLIC PANEL,BMP [CHEM] AM Lab 10/13/20 05:11 Ordered CBC WITH AUTO DIFF [HEME] AM Lab 10/13/20 05:11 Ordered CULTURE BLOOD [BC] Stat Lab 10/12/20 15:05 Received CULTURE BLOOD [BC] Stat Lab 10/12/20 15:10 Received HEPATIC FUNCTION PANEL,HFP [CHEM] AM Lab 10/13/20 05:11 Ordered Acetaminophen [TylenoL] Med 10/12/20 18:31 Active 650 mg PO Q4H PRN Albuterol/Ipratropium [DuoNeb 3.0-0.5 MG/3 ML] Med 10/12/20 18:31 Active 3 ml NEB Q4H PRN HYDROmorphone [Dilaudid] Med 10/12/20 18:31 Active 0.5 mg IVPUSH Q1H PRN Heparin Sodium Med 10/12/20 21:00 Active 5,000 units SUBCUT Q8H Insulin Lispro [HumaLOG] Med 10/12/20 22:00 Ordered See Protocol SUBCUT QIDACANDBED Nicotine [Habitrol] Med 10/12/20 19:00 Active 14 mg TRDERM DAILY@1900 Ondansetron [Zofran ODT] Med 10/12/20 18:31 Active 4 mg PO Q4H PRN Ondansetron [Zofran] Med 10/12/20 18:31 Active 4 mg IV Q6H PRN Pharmacy to Dose - Vancomycin Med 10/12/20 19:15 Ordered 1 dose .XX ASDIRECTED Piperacillin/Tazobactam [Piperacil-Tazobact] 3.375 gm Med 10/12/20 19:00 Ordered Sodium Chloride 0.9% [Normal Saline] 100 ml IV Q8H Remove Patch Med 10/13/20 19:00 Active 1 ea TRDERM DAILY@1900 Sodium Chloride 0.9% [Saline Flush] Med 10/12/20 14:48 Active 10 ml FLUSH ASDIRECTED PRN Temazepam [Restoril] Med 10/12/20 18:31 Active 7.5 mg PO BEDTIME PRN oxyCODONE Med 10/12/20 18:31 Active 5 mg PO Q4H PRN Blood Culture x2 Reflex Set [OM.PC] Stat Ot 10/12/20 14:48 Ordered Glucose Management Sub Q Reflex [OM.PC] Click to Edit Ot 10/12/20 18:31 Ordered Peripheral IV Insertion Adult [OM.PC] Stat Ot 10/12/20 14:47 Ordered Resuscitation Status Routine Resus Stat 10/12/20 18:31 Ordered Medication Orders Acetaminophen (Acetaminophen 325 Mg Tab) 650 mg PO Q4H PRN PRN Reason: Pain (Mild 1-3)/fever Albuterol/Ipratropium (Albuterol/Ipratropium 3.0-0.5 Mg/3 Ml Neb Soln) 3 ml NEB Q4H PRN PRN Reason: Shortness Of Breath/wheezing Heparin Sodium (Porcine) (Heparin Sodium 5,000 Units/Ml Vial) 5,000 units SUBCUT Q8H [facility] Hydromorphone HCl (Hydromorphone 0.5 Mg/0.5 Ml Syringe) 0.5 mg IVPUSH Q1H PRN PRN Reason: Pain (severe 7-10) Piperacillin Sod/Tazobactam (Sod 3.375 gm/ Sodium Chloride) 100 mls @ 25 mls/hr IV Q8H [facility] Insulin Human Lispro (Insulin Lispro 100 Unit/Ml 10 Ml Vial) 0 unit SUBCUT QIDACANDBED [facility]; Protocol Miscellaneous Information (Remove Nicotine 14 Mg Patch) 1 ea TRDERM DAILY@1900 [facility] Nicotine (Nicotine 14 Mg/24 Hr Patch) 14 mg TRDERM DAILY@1900 [facility] Ondansetron HCl (Ondansetron 4 Mg Tab.Dis) 4 mg PO Q4H PRN PRN Reason: nausea, able to take PO Ondansetron HCl (Ondansetron 4 Mg/2 Ml Sdv) 4 mg IV Q6H PRN PRN Reason: Nausea/Vomiting Oxycodone HCl (Oxycodone 5 Mg Tab) 5 mg PO Q4H PRN PRN Reason: Pain (moderate 4-6) Sodium Chloride (Sodium Chloride 0.9% 10 Ml Syringe) 10 ml FLUSH ASDIRECTED PRN PRN Reason: Keep Vein Open Last Admin: 10/12/20 15:20 Dose: 10 ml Documented by: BRENDAN Temazepam (Temazepam 7.5 Mg Cap) 7.5 mg PO BEDTIME PRN PRN Reason: Sleep Vancomycin HCl (Pharmacy To Dose - Vancomycin) 1 dose .XX ASDIRECTED [facility] Assessment/Plan Comment:: Assessment: This is a 64M with hx of Type II DM (A1c 7.1), CAD, COPD, BPH, Peripheral neuropathy presenting [facility] for evaluation of right heal ulcer/diabetic foot ulcer with concerns for cellulitis. He presented to ED where CT right lower extremity was obtained showing Large posterior skin defect, the achilles tendon may be exposed or nearly exposed. Diffuse subcutaneous edema throughout the field of view particularly on the dorsum. Question cellulitis, lymphedema, venous stasis. no bone destruction. He was started on linezolid and admitted for further evaluation. 1. SIRS syndrome (Tachycardia; fever) Diabetic foot ulcer/cellulitis of right ankle/heal -start zosyn -start vanco pharm to dose -wound care consult tomorrow -wound cx -likely will need podiatry evaluation for possible debridement -may need MRI with IV contrast to evaluate for osteomyelitis 2. Hx of COPD 3. Hx of Type II DM A1c 7.1; hold metformin 4. Hx of peripheral neuropathy 5. Hx of BPH 6. Hx of chronic pain Syndrome 7. Hx of CAD 8. Hx of Psoriasis 9. Tobacco use disorder 10. Thrombocytopenia Code Status-Full Code DVT ppx-heparin Subq Disposition-Likely Dc to home 3-4 days pending culture data/antibiotic therapy - Mortality Measure Prognosis:: Good
--- NOTE | 2020-10-12 19:37 | CR ---
Chest: Portable view of the chest was obtained. Comparison: No prior chest imaging is available. Linear densities are noted within the left lung base compatible with atelectasis. Lungs otherwise are clear. Heart size and mediastinum are normal. Mild degenerative change is seen within the spine with prior cervical spine surgery. Impression: 1. Presumed atelectasis within the left lung base. 2. Nothing acute is otherwise seen. Diagnostic code #2
--- NOTE | 2020-10-12 19:37 | CT ---
CT right foot Technique: Multiple axial sections to the right foot were obtained. Intravenous contrast was not utilized. Reconstructed coronal and sagittal images were obtained. Comparison: No prior foot exam is available. Findings: Soft tissue defect is seen posteriorly. Diffuse soft tissue edema is seen throughout the lower extremity, ankle and foot. The visualized osseous structure shows no focal erosive change or fracture. No focal abscess is seen. Impression: 1. Soft tissue ulceration posteriorly. 2. Diffuse subcutaneous edema compatible with diffuse cellulitis. Diagnostic code #3 I agree with preliminary report from [facility], finalized on 10/12/20, 6:29 PM CDT, code 1
[2020-10-12] MEDS: Nicotine 14 MG/24 Hr Patch TRDERM SCH (20:26)
[2020-10-12] MEDS ORDERED: Piperacillin/Tazobactam 4.5 GM in Sodium Chloride 0.9% 100 ML IV ONE (20:30)
[2020-10-12] MEDS: Heparin Sodium 5,000 Units/ML Vial SUBCUT SCH (21:21)
[2020-10-12] MEDS: Gabapentin 300 MG Cap PO SCH (21:22)
[2020-10-12] MEDS: Rosuvastatin 10 MG Tab PO SCH (21:22)
[2020-10-12] MEDS: QUEtiapine 100 MG Tab PO SCH (21:23)
[2020-10-12] MEDS: Amitriptyline 25 MG Tab PO SCH (21:23)
[2020-10-12] MEDS: Insulin Lispro 100 UNIT/ML 10 ML Vial SUBCUT SCH (22:00)
[2020-10-13] MEDS ORDERED: Piperacillin/Tazobactam 3.375 GM in Sodium Chloride 0.9% 100 ML IV SCH (04:00)
[2020-10-13] MEDS ORDERED: Vancomycin 500 MG SDV ONE (04:50)
[2020-10-13] MEDS ORDERED: Sodium Chloride 0.9% 500 ML ONE (04:51)
[2020-10-13] MEDS: Heparin Sodium 5,000 Units/ML Vial SUBCUT SCH (05:01)
[2020-10-13] MEDS: Piperacillin/Tazobactam 4.5 GM in Sodium Chloride 0.9% 100 ML IV SCH ×3 (06:32→20:41)
[2020-10-13] MEDS: Insulin Lispro 100 UNIT/ML 10 ML Vial SUBCUT SCH ×4 (07:38→21:20)
[2020-10-13] MEDS ORDERED: DULoxetine 30 MG Cap PO SCH (08:00)
[2020-10-13] MEDS ORDERED: Aspirin 81 MG Tab.EC PO SCH (08:00)
[2020-10-13] MEDS: Folic Acid 1 MG Tab PO SCH (08:19)
[2020-10-13] MEDS: hydrOXYzine HCl 50 MG Tab PO SCH (08:20)
[2020-10-13] MEDS: Gabapentin 300 MG Cap PO SCH (08:20)
[2020-10-13] MEDS: Niacin 500 MG Tab.ER PO SCH (08:20)
[2020-10-13] MEDS: oxyCODONE 5 MG Tab PO PRN ×2 (08:39→20:40)
[2020-10-13] MEDS: Vancomycin 1 GM, Vancomycin 500 MG in Sodium Chloride 0.9% 500 ML IV SCH ×2 (11:35→20:40)
[2020-10-13] MEDS ORDERED: Gadobenate Dimeglumine 529 MG/ML 20 ML SDV IVPUSH ONE (12:35)
[2020-10-13] MEDS ORDERED: Sodium Chloride 0.9% 10 ML Syringe FLUSH SCH (12:45)
--- NOTE | 2020-10-13 13:34 | MR ---
MRI right ankle (without and with intravenous contrast) Technique: T1 and T1 inversion recovery sagittal; T2, T2 fat suppressed and proton weighted coronal; T1 and T2 fat-suppressed axial; postcontrast T1 fat-suppressed axial, coronal and sagittal images were also obtained. Comparison: No prior ankle study is available. Findings: Diffuse soft tissue swelling is seen around the ankle. There is no bone marrow edema being seen. No abnormal enhancement is seen within the bone marrow. Collateral ligaments appear to be intact. Low signal tendons along the medial and lateral ankle appear intact. Impression: 1. Diffuse soft tissue edema presumably due to diffuse cellulitis. 2. No osseous abnormality is appreciated at this time. Diagnostic code #3
[2020-10-13] MEDS: Gabapentin 600 MG Tab PO SCH ×3 (15:17→20:40)
--- NOTE | 2020-10-13 17:18 | US ---
Bilateral lower extremity deep venous ultrasound: Duplex and color Doppler evaluation was obtained of the right and left common femoral, proximal greater saphenous, superficial femoral, popliteal, posterior tibial and peroneal veins. Comparison: No prior venous imaging is available. Findings: Normal phasic flow, augmentation and compression is seen within the visualized veins. Impression: 1. No findings of deep venous thrombosis is seen within either the right or left lower extremities. Diagnostic code #1
--- NOTE | 2020-10-13 17:49 | PCM.PN ---
- General Info Date of Service: 10/13/20 Subjective Update: Patient wanted to go home last night this morning endorses neuropathic pain in leg and foot he has been picking at his wound he denies chest pain and sob denies fever - Patient Data Vitals - Most Recent: Last Vital Signs Temp 98.1 F 10/13/20 16:04 Pulse 68 10/13/20 16:04 Resp 14 10/13/20 16:04 BP 120/66 10/13/20 16:04 Pulse Ox 93 L 10/13/20 16:04 Weight - Most Recent: 220 lb 12.8 oz I&O - Last 24 Hours: Intake & Output 10/13/20 10/13/20 10/13/20 06:59 14:59 22:59 Intake Total 1300 1425 Output Total 600 Balance 1300 825 Lab Results Last 24 Hours: Laboratory Results - last 24 hr 10/12/20 10/13/20 10/13/20 Range/Units 22:12 05:45 05:46 WBC 2.96 L (4.23-9.07) K/mm3 RBC 2.93 L (4.63-6.08) M/mm3 Hgb 10.9 L (13.7-17.5) gm/dl Hct 32.6 L (40.1-51.0) % MCV 111.3 H (79.0-92.2) fl MCH 37.2 H (25.7-32.2) pg MCHC 33.4 (32.2-35.5) g/dl RDW Std Deviation 69.7 H (35.1-43.9) fL Plt Count 78 L (163-337) K/mm3 MPV 9.3 L (9.4-12.3) fl Neut % (Auto) 64.6 (34.0-67.9) % Lymph % (Auto) 31.4 (21.8-53.1) % Cochran % (Auto) 1.7 L (5.3-12.2) % Eos % (Auto) 1.7 (0.8-7.0) Baso % (Auto) 0.3 (0.1-1.2) % Neut # (Auto) 1.91 (1.78-5.38) K/mm3 Lymph # (Auto) 0.93 L (1.32-3.57) K/mm3 Cochran # (Auto) 0.05 L (0.30-0.82) K/mm3 Eos # (Auto) 0.05 (0.04-0.54) K/mm3 Baso # (Auto) 0.01 (0.01-0.08) K/mm3 Manual Slide Review Abnormal smear Sodium (136-145) mEq/L Potassium (3.5-5.1) mEq/L Chloride (98-107) mEq/L Carbon Dioxide (21-32) mEq/L Anion Gap (5-15) BUN (7-18) mg/dL Creatinine (0.7-1.3) mg/dL Est Cr Clr Drug Dosing mL/min Estimated GFR (MDRD) (>60) mL/min BUN/Creatinine Ratio (14-18) Glucose (70-99) mg/dL POC Glucose 107 H 120 H (70-99) mg/dL Calcium (8.5-10.1) mg/dL Total Bilirubin (0.2-1.0) mg/dL Direct Bilirubin (0.0-0.2) mg/dl Indirect Bilirubin AST (15-37) U/L ALT (16-63) U/L Alkaline Phosphatase (46-116) U/L Total Protein (6.4-8.2) g/dl Albumin (3.4-5.0) g/dl Globulin gm/dL Albumin/Globulin Ratio (1-2) 10/13/20 10/13/20 10/13/20 Range/Units 05:46 11:05 17:00 WBC (4.23-9.07) K/mm3 RBC (4.63-6.08) M/mm3 Hgb (13.7-17.5) gm/dl Hct (40.1-51.0) % MCV (79.0-92.2) fl MCH (25.7-32.2) pg MCHC (32.2-35.5) g/dl RDW Std Deviation (35.1-43.9) fL Plt Count (163-337) K/mm3 MPV (9.4-12.3) fl Neut % (Auto) (34.0-67.9) % Lymph % (Auto) (21.8-53.1) % Cochran % (Auto) (5.3-12.2) % Eos % (Auto) (0.8-7.0) Baso % (Auto) (0.1-1.2) % Neut # (Auto) (1.78-5.38) K/mm3 Lymph # (Auto) (1.32-3.57) K/mm3 Cochran # (Auto) (0.30-0.82) K/mm3 Eos # (Auto) (0.04-0.54) K/mm3 Baso # (Auto) (0.01-0.08) K/mm3 Manual Slide Review Sodium 139 (136-145) mEq/L Potassium 3.8 (3.5-5.1) mEq/L Chloride 104 (98-107) mEq/L Carbon Dioxide 28 (21-32) mEq/L Anion Gap 10.8 (5-15) BUN 10 (7-18) mg/dL Creatinine 0.9 (0.7-1.3) mg/dL Est Cr Clr Drug Dosing 81.83 mL/min Estimated GFR (MDRD) > 60 (>60) mL/min BUN/Creatinine Ratio 11.1 L (14-18) Glucose 122 H (70-99) mg/dL POC Glucose 116 H 77 (70-99) mg/dL Calcium 7.8 L (8.5-10.1) mg/dL Total Bilirubin 1.1 H (0.2-1.0) mg/dL Direct Bilirubin 0.40 H (0.0-0.2) mg/dl Indirect Bilirubin 0.70 AST 37 (15-37) U/L ALT 54 (16-63) U/L Alkaline Phosphatase 72 (46-116) U/L Total Protein 5.8 L (6.4-8.2) g/dl Albumin 2.6 L (3.4-5.0) g/dl Globulin 3.2 gm/dL Albumin/Globulin Ratio 0.8 L (1-2) James Results Last 24 Hours: Microbiology 10/12/20 15:05 Aerobic Blood Culture - Preliminary Blood - Venous - Lab Draw NO GROWTH AFTER 1 DAY Anaerobic Blood Culture - Preliminary NO GROWTH AFTER 1 DAY 10/12/20 15:10 Aerobic Blood Culture - Preliminary Blood - Venous NO GROWTH AFTER 1 DAY Anaerobic Blood Culture - Preliminary NO GROWTH AFTER 1 DAY Med Orders - Current: Current Medications Acetaminophen (Acetaminophen 325 Mg Tab) 650 mg PO Q4H PRN PRN Reason: Pain (Mild 1-3)/fever Albuterol/Ipratropium (Albuterol/Ipratropium 3.0-0.5 Mg/3 Ml Neb Soln) 3 ml NEB Q4H PRN PRN Reason: Shortness Of Breath/wheezing Amitriptyline HCl (Amitriptyline 25 Mg Tab) 50 mg PO BEDTIME [facility] Last Admin: 10/12/20 21:23 Dose: 50 mg Documented by: Aspirin (Aspirin 81 Mg Tab.Ec) 81 mg PO Q24H [facility] Last Admin: 10/13/20 08:20 Dose: 81 mg Documented by: Atenolol (Atenolol 50 Mg Tab) 50 mg PO PCDINNER [facility] Duloxetine HCl (Duloxetine 30 Mg Cap) 60 mg PO Q24H [facility] Last Admin: 10/13/20 08:19 Dose: 60 mg Documented by: Folic Acid (Folic Acid 1 Mg Tab) 1 mg PO DAILY [facility] Last Admin: 10/13/20 08:19 Dose: 1 mg Documented by: Gabapentin (Gabapentin 600 Mg Tab) 600 mg PO BID [facility] Hydromorphone HCl (Hydromorphone 0.5 Mg/0.5 Ml Syringe) 0.5 mg IVPUSH Q1H PRN PRN Reason: Pain (severe 7-10) Hydroxyzine HCl (Hydroxyzine Hcl 50 Mg Tab) 50 mg PO DAILY [facility] Last Admin: 10/13/20 08:20 Dose: 50 mg Documented by: Piperacillin Sod/Tazobactam (Sod 4.5 gm/ Sodium Chloride) 100 mls @ 25 mls/hr IV Q8H [facility] Last Admin: 10/13/20 15:05 Dose: 25 mls/hr Documented by: Vancomycin HCl 1 gm/Vancomycin HCl 500 mg/ Sodium Chloride 500 mls @ 250 mls/hr IV Q8H [facility] Last Admin: 10/13/20 11:35 Dose: 250 mls/hr Documented by: Insulin Human Lispro (Insulin Lispro 100 Unit/Ml 10 Ml Vial) 0 unit SUBCUT QIDACANDBED [facility]; Protocol Last Admin: 10/13/20 17:28 Dose: Not Given Documented by: Miscellaneous Information (Remove Nicotine 14 Mg Patch) 1 ea TRDERM DAILY@1900 [facility] Niacin (Niacin 500 Mg Tab.Er) 1,000 mg PO DAILY [facility] Last Admin: 10/13/20 08:20 Dose: 1,000 mg Documented by: Nicotine (Nicotine 14 Mg/24 Hr Patch) 14 mg TRDERM DAILY@1900 [facility] Last Admin: 10/12/20 20:26 Dose: Not Given Documented by: Ondansetron HCl (Ondansetron 4 Mg Tab.Dis) 4 mg PO Q4H PRN PRN Reason: nausea, able to take PO Ondansetron HCl (Ondansetron 4 Mg/2 Ml Sdv) 4 mg IV Q6H PRN PRN Reason: Nausea/Vomiting Oxycodone HCl (Oxycodone 5 Mg Tab) 5 mg PO Q4H PRN PRN Reason: Pain (moderate 4-6) Last Admin: 10/13/20 08:39 Dose: 5 mg Documented by: Quetiapine Fumarate (Quetiapine 100 Mg Tab) 300 mg PO Q24H [facility] Last Admin: 10/12/20 21:23 Dose: 300 mg Documented by: Rosuvastatin Calcium (Rosuvastatin 10 Mg Tab) 20 mg PO BEDTIME [facility] Last Admin: 10/12/20 21:22 Dose: 20 mg Documented by: Sodium Chloride (Sodium Chloride 0.9% 10 Ml Syringe) 10 ml FLUSH ASDIRECTED PRN PRN Reason: Keep Vein Open Last Admin: 10/12/20 15:20 Dose: 10 ml Documented by: Temazepam (Temazepam 7.5 Mg Cap) 7.5 mg PO BEDTIME PRN PRN Reason: Sleep Vancomycin HCl (Pharmacy To Dose - Vancomycin) 1 dose .XX ASDIRECTED PRN PRN Reason: RX TO DOSE Discontinued Medications Gabapentin (Gabapentin 300 Mg Cap) 300 mg PO BID [facility] Last Admin: 10/13/20 08:20 Dose: 300 mg Documented by: Gabapentin (Gabapentin 600 Mg Tab) 600 mg PO BID [facility] Last Admin: 10/13/20 15:17 Dose: Not Given Documented by: Gadobenate Dimeglumine (Gadobenate Dimeglumine 529 Mg/Ml 20 Ml Sdv) 20 ml IVPUSH ONETIME ONE Stop: 10/13/20 12:36 Last Admin: 10/13/20 12:46 Dose: 20 ml Documented by: Heparin Sodium (Porcine) (Heparin Sodium 5,000 Units/Ml Vial) 5,000 units SUBCUT Q8H [facility] Last Admin: 10/13/20 05:01 Dose: 5,000 units Documented by: Hydromorphone HCl (Hydromorphone 1 Mg/Ml Syringe) 1 mg IVPUSH ONETIME ONE Stop: 10/12/20 16:02 Last Admin: 10/12/20 16:07 Dose: 1 mg Documented by: Hydromorphone HCl (Hydromorphone 0.5 Mg/0.5 Ml Syringe) 0.5 mg IVPUSH ONETIME ONE Stop: 10/12/20 17:48 Last Admin: 10/12/20 17:52 Dose: 0.5 mg Documented by: Sodium Chloride (Normal Saline) 1,000 mls @ 150 mls/hr IV ASDIRECTED [facility] Last Admin: 10/12/20 15:20 Dose: 150 mls/hr Documented by: Linezolid 600 mg/ Premix 300 mls @ 300 mls/hr IV ONETIME ONE Stop: 10/12/20 15:47 Last Admin: 10/12/20 15:19 Dose: 300 mls/hr Documented by: Piperacillin Sod/Tazobactam (Sod 3.375 gm/ Sodium Chloride) 100 mls @ 25 mls/hr IV Q8H [facility] Last Admin: 10/12/20 20:25 Dose: Not Given Documented by: Magnesium Sulfate/Dextrose 1 (gm/ Premix) 100 mls @ 100 mls/hr IV Q1H [facility] Stop: 10/12/20 21:19 Last Admin: 10/12/20 21:24 Dose: 100 mls/hr Documented by: Piperacillin Sod/Tazobactam (Sod 4.5 gm/ Sodium Chloride) 100 mls @ 200 mls/hr IV ONETIME ONE Stop: 10/12/20 20:59 Last Admin: 10/12/20 20:21 Dose: 200 mls/hr Documented by: Piperacillin Sod/Tazobactam (Sod 3.375 gm/ Sodium Chloride) 100 mls @ 25 mls/hr IV Q8H [facility] Vancomycin HCl 1,500 mg/ (Sodium Chloride) 500 mls @ 333.333 mls/hr IV Q8H [facility] Last Admin: 10/13/20 05:00 Dose: 333.333 mls/hr Documented by: Sodium Chloride (Normal Saline) Confirm Administered Dose 500 mls @ as directed .ROUTE .STK-MED ONE Stop: 10/13/20 04:52 Last Admin: 10/13/20 05:01 Dose: Not Given Documented by: Ondansetron HCl (Ondansetron 4 Mg/2 Ml Sdv) 4 mg IVPUSH ONETIME ONE Stop: 10/12/20 16:02 Last Admin: 10/12/20 16:06 Dose: 4 mg Documented by: Sodium Chloride (Sodium Chloride 0.9% 10 Ml Syringe) 20 ml FLUSH ASDIRECTED [facility] Stop: 10/13/20 14:00 Last Admin: 10/13/20 12:46 Dose: 20 ml Documented by: Vancomycin HCl (Vancomycin 500 Mg Sdv) Confirm Administered Dose 1,500 mg .ROUTE .STK-MED ONE Stop: 10/13/20 04:51 Last Admin: 10/13/20 05:02 Dose: Not Given Documented by: - Exam Physical Findings Comments:: Gen: no acute distress HEENT: NCAT EOMI MMM CV: RRR normal s1 s2 Lungs: CTAB Abd: soft, nt, nd MSK: Right heal ulcer 3x3cm in diameter with surrounding erythema and edema peripheral pulses 2+ - Patient Data Lab Results Last 24 hrs: Laboratory Results - last 24 hr 10/12/20 10/13/20 10/13/20 Range/Units 22:12 05:45 05:46 WBC 2.96 L (4.23-9.07) K/mm3 RBC 2.93 L (4.63-6.08) M/mm3 Hgb 10.9 L (13.7-17.5) gm/dl Hct 32.6 L (40.1-51.0) % MCV 111.3 H (79.0-92.2) fl MCH 37.2 H (25.7-32.2) pg MCHC 33.4 (32.2-35.5) g/dl RDW Std Deviation 69.7 H (35.1-43.9) fL Plt Count 78 L (163-337) K/mm3 MPV 9.3 L (9.4-12.3) fl Neut % (Auto) 64.6 (34.0-67.9) % Lymph % (Auto) 31.4 (21.8-53.1) % Cochran % (Auto) 1.7 L (5.3-12.2) % Eos % (Auto) 1.7 (0.8-7.0) Baso % (Auto) 0.3 (0.1-1.2) % Neut # (Auto) 1.91 (1.78-5.38) K/mm3 Lymph # (Auto) 0.93 L (1.32-3.57) K/mm3 Cochran # (Auto) 0.05 L (0.30-0.82) K/mm3 Eos # (Auto) 0.05 (0.04-0.54) K/mm3 Baso # (Auto) 0.01 (0.01-0.08) K/mm3 Manual Slide Review Abnormal smear Sodium (136-145) mEq/L Potassium (3.5-5.1) mEq/L Chloride (98-107) mEq/L Carbon Dioxide (21-32) mEq/L Anion Gap (5-15) BUN (7-18) mg/dL Creatinine (0.7-1.3) mg/dL Est Cr Clr Drug Dosing mL/min Estimated GFR (MDRD) (>60) mL/min BUN/Creatinine Ratio (14-18) Glucose (70-99) mg/dL POC Glucose 107 H 120 H (70-99) mg/dL Calcium (8.5-10.1) mg/dL Total Bilirubin (0.2-1.0) mg/dL Direct Bilirubin (0.0-0.2) mg/dl Indirect Bilirubin AST (15-37) U/L ALT (16-63) U/L Alkaline Phosphatase (46-116) U/L Total Protein (6.4-8.2) g/dl Albumin (3.4-5.0) g/dl Globulin gm/dL Albumin/Globulin Ratio (1-2) 10/13/20 10/13/20 10/13/20 Range/Units 05:46 11:05 17:00 WBC (4.23-9.07) K/mm3 RBC (4.63-6.08) M/mm3 Hgb (13.7-17.5) gm/dl Hct (40.1-51.0) % MCV (79.0-92.2) fl MCH (25.7-32.2) pg MCHC (32.2-35.5) g/dl RDW Std Deviation (35.1-43.9) fL Plt Count (163-337) K/mm3 MPV (9.4-12.3) fl Neut % (Auto) (34.0-67.9) % Lymph % (Auto) (21.8-53.1) % Cochran % (Auto) (5.3-12.2) % Eos % (Auto) (0.8-7.0) Baso % (Auto) (0.1-1.2) % Neut # (Auto) (1.78-5.38) K/mm3 Lymph # (Auto) (1.32-3.57) K/mm3 Cochran # (Auto) (0.30-0.82) K/mm3 Eos # (Auto) (0.04-0.54) K/mm3 Baso # (Auto) (0.01-0.08) K/mm3 Manual Slide Review Sodium 139 (136-145) mEq/L Potassium 3.8 (3.5-5.1) mEq/L Chloride 104 (98-107) mEq/L Carbon Dioxide 28 (21-32) mEq/L Anion Gap 10.8 (5-15) BUN 10 (7-18) mg/dL Creatinine 0.9 (0.7-1.3) mg/dL Est Cr Clr Drug Dosing 81.83 mL/min Estimated GFR (MDRD) > 60 (>60) mL/min BUN/Creatinine Ratio 11.1 L (14-18) Glucose 122 H (70-99) mg/dL POC Glucose 116 H 77 (70-99) mg/dL Calcium 7.8 L (8.5-10.1) mg/dL Total Bilirubin 1.1 H (0.2-1.0) mg/dL Direct Bilirubin 0.40 H (0.0-0.2) mg/dl Indirect Bilirubin 0.70 AST 37 (15-37) U/L ALT 54 (16-63) U/L Alkaline Phosphatase 72 (46-116) U/L Total Protein 5.8 L (6.4-8.2) g/dl Albumin 2.6 L (3.4-5.0) g/dl Globulin 3.2 gm/dL Albumin/Globulin Ratio 0.8 L (1-2) Result Diagrams: 10/13/20 05:46 10/13/20 05:46 James Results Last 24 hrs: Microbiology 10/12/20 15:05 Aerobic Blood Culture - Preliminary Blood - Venous - Lab Draw NO GROWTH AFTER 1 DAY Anaerobic Blood Culture - Preliminary NO GROWTH AFTER 1 DAY 10/12/20 15:10 Aerobic Blood Culture - Preliminary Blood - Venous NO GROWTH AFTER 1 DAY Anaerobic Blood Culture - Preliminary NO GROWTH AFTER 1 DAY Sepsis Event Note - Evaluation Sepsis Screening Result: No Definite Risk - Focused Exam Vital Signs: Vital Signs Temp Pulse Resp BP Pulse Ox 10/13/20 16:04 98.1 F 68 14 120/66 93 L 10/13/20 11:17 98.1 F 83 14 103/63 92 L 10/13/20 08:05 98.1 F 84 14 122/63 92 L - Problem List Review Problem List Initiated/Reviewed/Updated: Yes - My Orders Last 24 Hours: My Active Orders 10/12/20 18:31 Patient Status [ADT] Routine Blood Glucose Check, Bedside [RC] WITHMEALSANDBED Oxygen Therapy [RC] PRN Up With Assistance [RC] BID VTE/DVT Education [RC] DAILY Vital Signs [RC] Q4HR Consult to Case Management/Junction Maker [CONS] Routine PT Evaluation and Treatment [CONS] Routine Acetaminophen [TylenoL] 650 mg PO Q4H PRN Albuterol/Ipratropium [DuoNeb 3.0-0.5 MG/3 ML] 3 ml NEB Q4H PRN HYDROmorphone [Dilaudid] 0.5 mg IVPUSH Q1H PRN Ondansetron [Zofran ODT] 4 mg PO Q4H PRN Ondansetron [Zofran] 4 mg IV Q6H PRN Temazepam [Restoril] 7.5 mg PO BEDTIME PRN oxyCODONE 5 mg PO Q4H PRN Glucose Management Sub Q Reflex [OM.PC] Click To Edit Resuscitation Status Routine 10/12/20 18:32 Intake and Output [RC] 04,16 10/12/20 18:35 Diabetes Education [RC] Click to Edit RT Aerosol Therapy [RC] ASDIRECTED 10/12/20 18:52 Consult to Physical Therapy [PT Evaluation and Treatment] [CONS] Routine 10/12/20 19:00 Nicotine [Habitrol] 14 mg TRDERM DAILY@1900 10/12/20 19:15 Pharmacy to Dose - Vancomycin 1 dose .XX ASDIRECTED PRN 10/12/20 19:47 CULTURE WOUND [RM] Routine 10/12/20 20:00 Consult to Diabetic Nurse Specialist [CONS] Routine QUEtiapine [SEROqueL] 300 mg PO Q24H 10/12/20 21:00 Amitriptyline [Elavil] 50 mg PO BEDTIME Rosuvastatin [Crestor] 20 mg PO BEDTIME 10/12/20 22:00 Insulin Lispro [HumaLOG] See Protocol SUBCUT QIDACANDBED 10/13/20 05:00 Piperacillin/Tazobactam [Piperacil-Tazobact] 4.5 gm Sodium Chloride 0.9% [Normal Saline] 100 ml IV Q8H 10/13/20 08:00 Aspirin [Halfprin] 81 mg PO Q24H DULoxetine [Cymbalta] 60 mg PO Q24H 10/13/20 09:00 Folic Acid 1 mg PO DAILY Niacin [Niaspan] 1,000 mg PO DAILY hydrOXYzine HCL [Atarax] 50 mg PO DAILY 10/13/20 12:00 Vancomycin 1 gm Vancomycin 500 mg Sodium Chloride 0.9% [Normal Saline] 500 ml IV Q8H 10/13/20 Dinner Consistent Carbohydrate Diet [DIET] 10/13/20 19:00 Remove Patch 1 ea TRDERM DAILY@1900 atenoloL [Tenormin] 50 mg PO PCDINNER 10/13/20 21:00 Gabapentin [Neurontin] 600 mg PO BID 10/14/20 11:30 VANCOMYCIN TROUGH [CHEM] Timed - Plan Plan:: Assessment: This is a 64M with hx of Type II DM (A1c 7.1), CAD, COPD, BPH, Peripheral neuropathy [facility] of right heal ulcer/diabetic foot ulcer with concerns for cellulitis. He presented to ED where CT right lower extremity was obtained showing Large posterior skin defect, the achilles tendon may be exposed or nearly exposed. Diffuse subcutaneous edema throughout the field of view particularly on the dorsum. Question cellulitis, lymphedema, venous stasis. no bone destruction. He was started on linezolid and admitted for further evaluation. 1. SIRS syndrome (Tachycardia; fever) Diabetic foot ulcer/cellulitis of right ankle/heal -continue zosyn -continue vanco pharm to dose -gen surg consult for possible local debridement -f/u Cx data -venous doppler US of lower extremities -MRI with IV contrast negative for osteomyelitis 2. Hx of COPD 3. Hx of Type II DM A1c 7.1; hold metformin 4. Hx of peripheral neuropathy 5. Hx of BPH 6. Hx of chronic pain Syndrome 7. Hx of CAD 8. Hx of Psoriasis 9. Tobacco use disorder 10. Acute on chronic Thrombocytopenia; platelet worsening; will dc heparin subq. Hx of thrombocytopenia has been on MTX for treatment of psoriasis lesions Code Status-Full Code DVT ppx-SCD Disposition-Likely Dc to home 1-2 days pending culture data/antibiotic therapy
--- NOTE | 2020-10-13 18:46 | PCM.CONS ---
H&P History of Present Illness - General Date of Service: 10/13/20 Admit Problem/Dx: Admission Diagnosis/Problem Admission Diagnosis/Problem Cellulitis Source of Information: Patient, Provider History Limitations: Reports: No Limitations - History of Present Illness Initial Comments - Free Text/Narative: The patient is a 64 y/o male who presented to the hospital for concern of cellulitis in the area of a heel ulcer. Consult placed for possible wound debridement. He reports this started about one month ago and has been spreading. He stated it originally looked somewhat like a blister. He states it is very painful. He has had similar lesions erupt on his knees bilaterally, and these start as nodules that open into ulcers. One of the knee lesions did have a central area of black tissue that he debrided with his pocket knife. He denies any activity with prolonged kneeling. Right Ankle Pain Score (Numeric/FACES): 9 - Related Data Allergies/Adverse Reactions: Allergies Allergy/AdvReac Type Severity Reaction Status Date / Time bee venom protein (honey bee) Allergy Other Verified 10/12/20 18:50 poison oak extract Allergy Other Verified 10/12/20 18:50 Home Medications: Home Meds Amitriptyline [Elavil] 50 mg PO BEDTIME 10/12/20 [History] Aspirin [Halfprin] 81 mg PO Q24H 10/12/20 [History] Cholecalciferol (Vitamin D3) [Vitamin D3] 1,000 mcg PO ASDIRECTED 10/12/20 [History] Cyclobenzaprine [Flexeril] 10 mg PO TID PRN 10/12/20 [History] DULoxetine HCl [Cymbalta] 60 mg PO Q24H 10/12/20 [History] Folic Acid 800 mcg PO DAILY 10/12/20 [History] Gabapentin [Neurontin] 300 mg PO BID 10/12/20 [History] Ibuprofen 400 mg PO DAILY PRN 10/12/20 [History] Methotrexate 20 mg PO WEEKLY 10/12/20 [History] Niacin [Niacin ER] 1,000 mg PO DAILY 10/12/20 [History] Nystatin [Nystatin Crm] 1 applic TOP BID PRN 10/12/20 [History] Patient's Own Medication [Ptom] 15 ml SSPIT Q6H PRN 10/12/20 [History] QUEtiapine Fumarate [Quetiapine Fumarate] 300 mg PO Q24H 10/12/20 [History] Rosuvastatin Calcium 20 mg PO BEDTIME 10/12/20 [History] atenoloL [Tenormin] 50 mg PO PCDINNER 10/12/20 [History] hydrOXYzine HCL [Hydroxyzine HCl] 50 mg PO DAILY 10/12/20 [History] metFORMIN HCl [Glucophage] 1,000 mg PO BIDMEALS 10/12/20 [History] Past Medical History HEENT History: Reports: Other (See Below) Other HEENT History: wear glasses and have upper/lower dentures Cardiovascular History: Reports: Hypertension, [place], Stents Respiratory History: Reports: COPD Gastrointestinal History: Reports: Other (See Below) Other Gastrointestinal History: pt states abdominal hernia Genitourinary History: Reports: BPH Musculoskeletal History: Reports: Osteoarthritis Other Musculoskeletal History: Previous fractured pelvis treated nonoperatively. Severe degenerative arthritis and disc disease cervical spine with cervical spine surgery and patient believes fusion was also done. Psychiatric History: Reports: Addiction, Mood Swings Endocrine/Metabolic History: Reports: Other (See Below) Other Endocrine/Metabolic History: patient states he has been told "his number is getting higher," for diabetes Dermatologic History: Reports: Psoriasis - Infectious Disease History Infectious Disease History: Reports: Chicken Pox, Measles Social & Family History - Family History Family Medical History: No Pertinent Family History (unknown of mother and father) - Tobacco Use Tobacco Use Status *Q: Current Every Day Tobacco User Years of Tobacco use: 50 Packs/Tins Daily: 1 - Caffeine Use Caffeine Use: Reports: Coffee - Alcohol Use Days Per Week of Alcohol Use: 7 - Recreational Drug Use Recreational Drug Use: Yes Recreational Drug Type: Reports: Marijuana/Hashish Recreational Drug Use Frequency: Socially - Living Situation & Occupation Living situation: Reports: Single Occupation: Retired H&P Review of Systems - Review of Systems: Review Of Systems: See Below General: Denies: Fever HEENT: Reports: No Symptoms Pulmonary: Reports: No Symptoms Cardiovascular: Reports: No Symptoms Gastrointestinal: Reports: No Symptoms Genitourinary: Reports: No Symptoms Musculoskeletal: Reports: No Symptoms Skin: Reports: Lesions Neurological: Reports: No Symptoms Hematologic/Lymphatic: Reports: No Symptoms Exam - Exam Exam: See Below - Vital Signs Vital Signs: Last Vital Signs Temp 36.7 C 10/13/20 16:04 Pulse 68 10/13/20 16:04 Resp 14 10/13/20 16:04 BP 120/66 10/13/20 16:04 Pulse Ox 93 L 10/13/20 18:31 Weight: 100.153 kg - Exam Quality Assessment: DVT Prophylaxis. No: Supplemental Oxygen General: Alert HEENT: Conjunctiva Clear, EOMI Neck: Supple Lungs: Normal Respiratory Effort GI/Abdominal Exam: Soft, Non-Tender, No Distention Extremities: Other (1+ pitting edema on the RLE) Peripheral Pulses: 2+: Dorsalis Pedis (L), Dorsalis Pedis (R) Skin: Wound (7cm x10cm dessicated ulcer with surrounding white/massicated skin on the posterior ankle over the Achilles tendon, and erythema extending to the surrounding skin and extending onto the dorsum of the foot; Additional 3cm nodule on left knee. 3.5cm ulceration x1 on left knee and x2 on right knee ), Other (erythema on foot within the lines of demarcation) Skin Alteration Location (Drawings Not To Scale): 1 - ulceration 2 - 3.5cm ulcer with mild erythema and scab 3 - 3cm nodule 4 - 3.5cm ulceration with scab x2 Neurological: Cranial Nerves Intact Neuro Extensive - Mental Status: Oriented x3, Normal Mood/Affect - Patient Data Lab Results Last 24 hrs: Laboratory Results - last 24 hr 10/12/20 10/13/20 10/13/20 Range/Units 22:12 05:45 05:46 WBC 2.96 L (4.23-9.07) K/mm3 RBC 2.93 L (4.63-6.08) M/mm3 Hgb 10.9 L (13.7-17.5) gm/dl Hct 32.6 L (40.1-51.0) % MCV 111.3 H (79.0-92.2) fl MCH 37.2 H (25.7-32.2) pg MCHC 33.4 (32.2-35.5) g/dl RDW Std Deviation 69.7 H (35.1-43.9) fL Plt Count 78 L (163-337) K/mm3 MPV 9.3 L (9.4-12.3) fl Neut % (Auto) 64.6 (34.0-67.9) % Lymph % (Auto) 31.4 (21.8-53.1) % B[place] % (Auto) 1.7 L (5.3-12.2) % Eos % (Auto) 1.7 (0.8-7.0) Baso % (Auto) 0.3 (0.1-1.2) % Neut # (Auto) 1.91 (1.78-5.38) K/mm3 Lymph # (Auto) 0.93 L (1.32-3.57) K/mm3 B[place] # (Auto) 0.05 L (0.30-0.82) K/mm3 Eos # (Auto) 0.05 (0.04-0.54) K/mm3 Baso # (Auto) 0.01 (0.01-0.08) K/mm3 Manual Slide Review Abnormal smear Sodium (136-145) mEq/L Potassium (3.5-5.1) mEq/L Chloride (98-107) mEq/L Carbon Dioxide (21-32) mEq/L Anion Gap (5-15) BUN (7-18) mg/dL Creatinine (0.7-1.3) mg/dL Est Cr Clr Drug Dosing mL/min Estimated GFR (MDRD) (>60) mL/min BUN/Creatinine Ratio (14-18) Glucose (70-99) mg/dL POC Glucose 107 H 120 H (70-99) mg/dL Calcium (8.5-10.1) mg/dL Total Bilirubin (0.2-1.0) mg/dL Direct Bilirubin (0.0-0.2) mg/dl Indirect Bilirubin AST (15-37) U/L ALT (16-63) U/L Alkaline Phosphatase (46-116) U/L Total Protein (6.4-8.2) g/dl Albumin (3.4-5.0) g/dl Globulin gm/dL Albumin/Globulin Ratio (1-2) 10/13/20 10/13/20 10/13/20 Range/Units 05:46 11:05 17:00 WBC (4.23-9.07) K/mm3 RBC (4.63-6.08) M/mm3 Hgb (13.7-17.5) gm/dl Hct (40.1-51.0) % MCV (79.0-92.2) fl MCH (25.7-32.2) pg MCHC (32.2-35.5) g/dl RDW Std Deviation (35.1-43.9) fL Plt Count (163-337) K/mm3 MPV (9.4-12.3) fl Neut % (Auto) (34.0-67.9) % Lymph % (Auto) (21.8-53.1) % [place] % (Auto) (5.3-12.2) % Eos % (Auto) (0.8-7.0) Baso % (Auto) (0.1-1.2) % Neut # (Auto) (1.78-5.38) K/mm3 Lymph # (Auto) (1.32-3.57) K/mm3 [place] # (Auto) (0.30-0.82) K/mm3 Eos # (Auto) (0.04-0.54) K/mm3 Baso # (Auto) (0.01-0.08) K/mm3 Manual Slide Review Sodium 139 (136-145) mEq/L Potassium 3.8 (3.5-5.1) mEq/L Chloride 104 (98-107) mEq/L Carbon Dioxide 28 (21-32) mEq/L Anion Gap 10.8 (5-15) BUN 10 (7-18) mg/dL Creatinine 0.9 (0.7-1.3) mg/dL Est Cr Clr Drug Dosing 81.83 mL/min Estimated GFR (MDRD) > 60 (>60) mL/min BUN/Creatinine Ratio 11.1 L (14-18) Glucose 122 H (70-99) mg/dL POC Glucose 116 H 77 (70-99) mg/dL Calcium 7.8 L (8.5-10.1) mg/dL Total Bilirubin 1.1 H (0.2-1.0) mg/dL Direct Bilirubin 0.40 H (0.0-0.2) mg/dl Indirect Bilirubin 0.70 AST 37 (15-37) U/L ALT 54 (16-63) U/L Alkaline Phosphatase 72 (46-116) U/L Total Protein 5.8 L (6.4-8.2) g/dl Albumin 2.6 L (3.4-5.0) g/dl Globulin 3.2 gm/dL Albumin/Globulin Ratio 0.8 L (1-2) Result Diagrams: 10/13/20 05:46 10/13/20 05:46 James Results Last 24 hrs: Microbiology 10/12/20 15:05 Aerobic Blood Culture - Preliminary Blood - Venous - Lab Draw NO GROWTH AFTER 1 DAY Anaerobic Blood Culture - Preliminary NO GROWTH AFTER 1 DAY 10/12/20 15:10 Aerobic Blood Culture - Preliminary Blood - Venous NO GROWTH AFTER 1 DAY Anaerobic Blood Culture - Preliminary NO GROWTH AFTER 1 DAY Sepsis Event Note - Evaluation Sepsis Screening Result: No Definite Risk - Focused Exam Vital Signs: Vital Signs Temp Pulse Resp BP Pulse Ox Pulse Ox 10/13/20 18:31 93 L 10/13/20 16:04 36.7 C 68 14 120/66 93 L 10/13/20 11:17 36.7 C 83 14 103/63 92 L 10/13/20 08:05 36.7 C 84 14 122/63 92 L *Q Meaningful Use (ADM) - VTE *Q VTE Pharmacological Contraindications *Q: Thrombocytopenia - VTE Risk Assess *Q Each Risk Factor Represents 2 Points: Age 60 - 74 Years Total Score 2 Point Risk Factors: 2 Consult PN Assessment/Plan (1) Pyoderma gangrenosa SNOMED Code(s): 24792710 Code(s): L88 - PYODERMA GANGRENOSUM Current Visit: Yes (2) Cellulitis of lower extremity SNOMED Code(s): 983214612 Code(s): L03.119 - CELLULITIS OF UNSPECIFIED PART OF LIMB Current Visit: Yes Qualifiers: Laterality: right Qualified Code(s): L03.115 - Cellulitis of right lower limb (3) Type 2 diabetes mellitus SNOMED Code(s): 34892977 Code(s): E11.9 - TYPE 2 DIABETES MELLITUS WITHOUT COMPLICATIONS Current Visit: Yes Qualifiers: 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 May change every 2 days. May attempt compression therapy with xeroform to wounds and unna boot if the cellulitis is improved - continued antibiotics and medical management per primary - will need follow up wound care in surgery clinic after stable for discharge - Referral to rheumatology for evaluation and treatment of the underlying autoimmune disease Please call with any surgical change in wound. Nisreen Bass MD General surgery
[2020-10-13] MEDS: Nicotine 14 MG/24 Hr Patch TRDERM SCH (18:49)
[2020-10-13] MEDS: Atenolol 50 MG Tab PO SCH (18:53)
[2020-10-13] MEDS: Amitriptyline 25 MG Tab PO SCH (20:39)
[2020-10-13] MEDS: QUEtiapine 100 MG Tab PO SCH (20:39)
[2020-10-13] MEDS: Rosuvastatin 10 MG Tab PO SCH (20:39)
[2020-10-14] MEDS: Vancomycin 1 GM, Vancomycin 500 MG in Sodium Chloride 0.9% 500 ML IV SCH (03:27)
[2020-10-14] MEDS: Piperacillin/Tazobactam 4.5 GM in Sodium Chloride 0.9% 100 ML IV SCH ×3 (06:11→20:14)
[2020-10-14] MEDS: Insulin Lispro 100 UNIT/ML 10 ML Vial SUBCUT SCH ×4 (06:30→22:10)
[2020-10-14] MEDS: Folic Acid 1 MG Tab PO SCH (09:20)
[2020-10-14] MEDS: Gabapentin 600 MG Tab PO SCH ×2 (09:20→20:13)
[2020-10-14] MEDS: hydrOXYzine HCl 50 MG Tab PO SCH (09:20)
[2020-10-14] MEDS: Niacin 500 MG Tab.ER PO SCH (09:20)
[2020-10-14] MEDS: Aspirin 81 MG Tab.EC PO SCH (09:20)
[2020-10-14] MEDS: DULoxetine 30 MG Cap PO SCH (09:20)
--- NOTE | 2020-10-14 09:55 | PCM.PN ---
- General Info Date of Service: 10/14/20 Admission Dx/Problem (Free Text): Admission Diagnosis/Problem Admission Diagnosis/Problem Cellulitis. Hepatic foot wound Subjective Update: No acute events overnight. No specific new nursing concerns. Patient is occasional discomfort associated with the wound but pain is controlled. No fever overnight. Patient states that his range of motion within the foot and ankle is within normal limits. Drainage noted on bandages but without blood. MRI yesterday without findings of osteomyelitis. Awaiting culture data. Beta-hemolytic Streptococcus species identified but sensitivities are pending. Functional Status: Reports: Pain Controlled - Review of Systems General: Reports: No Symptoms HEENT: Reports: No Symptoms Pulmonary: Reports: No Symptoms Cardiovascular: Reports: No Symptoms Gastrointestinal: Reports: No Symptoms Genitourinary: Reports: No Symptoms Musculoskeletal: Reports: No Symptoms - Patient Data Vitals - Most Recent: Last Vital Signs Temp 97.7 F 10/14/20 07:32 Pulse 88 10/14/20 07:33 Resp 16 10/14/20 07:32 BP 116/70 10/14/20 07:32 Pulse Ox 94 L 10/14/20 07:33 Weight - Most Recent: 221 lb 1.6 oz I&O - Last 24 Hours: Intake & Output 10/13/20 10/14/20 10/14/20 22:59 06:59 14:59 Intake Total 1425 1500 Output Total 600 400 Balance 825 1100 Lab Results Last 24 Hours: Laboratory Results - last 24 hr 10/13/20 10/13/20 10/13/20 Range/Units 11:05 17:00 20:46 WBC (4.23-9.07) K/mm3 RBC (4.63-6.08) M/mm3 Hgb (13.7-17.5) gm/dl Hct (40.1-51.0) % MCV (79.0-92.2) fl MCH (25.7-32.2) pg MCHC (32.2-35.5) g/dl RDW Std Deviation (35.1-43.9) fL Plt Count (163-337) K/mm3 MPV (9.4-12.3) fl Neut % (Auto) (34.0-67.9) % Lymph % (Auto) (21.8-53.1) % [place] % (Auto) (5.3-12.2) % Eos % (Auto) (0.8-7.0) Baso % (Auto) (0.1-1.2) % Neut # (Auto) (1.78-5.38) K/mm3 Lymph # (Auto) (1.32-3.57) K/mm3 [place] # (Auto) (0.30-0.82) K/mm3 Eos # (Auto) (0.04-0.54) K/mm3 Baso # (Auto) (0.01-0.08) K/mm3 Manual Slide Review Sodium (136-145) mEq/L Potassium (3.5-5.1) mEq/L Chloride (98-107) mEq/L Carbon Dioxide (21-32) mEq/L Anion Gap (5-15) BUN (7-18) mg/dL Creatinine (0.7-1.3) mg/dL Est Cr Clr Drug Dosing mL/min Estimated GFR (MDRD) (>60) mL/min BUN/Creatinine Ratio (14-18) Glucose (70-99) mg/dL POC Glucose 116 H 77 84 (70-99) mg/dL Calcium (8.5-10.1) mg/dL 10/14/20 10/14/20 10/14/20 Range/Units 06:14 06:41 06:41 WBC 3.28 L (4.23-9.07) K/mm3 RBC 3.17 L (4.63-6.08) M/mm3 Hgb 11.8 L (13.7-17.5) gm/dl Hct 35.2 L (40.1-51.0) % MCV 111.0 H (79.0-92.2) fl MCH 37.2 H (25.7-32.2) pg MCHC 33.5 (32.2-35.5) g/dl RDW Std Deviation 68.9 H (35.1-43.9) fL Plt Count 75 L (163-337) K/mm3 MPV 9.2 L (9.4-12.3) fl Neut % (Auto) 61.9 (34.0-67.9) % Lymph % (Auto) 31.1 (21.8-53.1) % [place] % (Auto) 4.3 L (5.3-12.2) % Eos % (Auto) 2.4 (0.8-7.0) Baso % (Auto) 0.3 (0.1-1.2) % Neut # (Auto) 2.03 (1.78-5.38) K/mm3 Lymph # (Auto) 1.02 L (1.32-3.57) K/mm3 [place] # (Auto) 0.14 L (0.30-0.82) K/mm3 Eos # (Auto) 0.08 (0.04-0.54) K/mm3 Baso # (Auto) 0.01 (0.01-0.08) K/mm3 Manual Slide Review Abnormal smear Sodium 136 (136-145) mEq/L Potassium 3.5 (3.5-5.1) mEq/L Chloride 103 (98-107) mEq/L Carbon Dioxide 24 (21-32) mEq/L Anion Gap 12.5 (5-15) BUN 8 (7-18) mg/dL Creatinine 0.9 (0.7-1.3) mg/dL Est Cr Clr Drug Dosing 81.83 mL/min Estimated GFR (MDRD) > 60 (>60) mL/min BUN/Creatinine Ratio 8.9 L (14-18) Glucose 86 (70-99) mg/dL POC Glucose 69 L (70-99) mg/dL Calcium 7.9 L (8.5-10.1) mg/dL 10/14/20 Range/Units 06:51 WBC (4.23-9.07) K/mm3 RBC (4.63-6.08) M/mm3 Hgb (13.7-17.5) gm/dl Hct (40.1-51.0) % MCV (79.0-92.2) fl MCH (25.7-32.2) pg MCHC (32.2-35.5) g/dl RDW Std Deviation (35.1-43.9) fL Plt Count (163-337) K/mm3 MPV (9.4-12.3) fl Neut % (Auto) (34.0-67.9) % Lymph % (Auto) (21.8-53.1) % [place] % (Auto) (5.3-12.2) % Eos % (Auto) (0.8-7.0) Baso % (Auto) (0.1-1.2) % Neut # (Auto) (1.78-5.38) K/mm3 Lymph # (Auto) (1.32-3.57) K/mm3 [place] # (Auto) (0.30-0.82) K/mm3 Eos # (Auto) (0.04-0.54) K/mm3 Baso # (Auto) (0.01-0.08) K/mm3 Manual Slide Review Sodium (136-145) mEq/L Potassium (3.5-5.1) mEq/L Chloride (98-107) mEq/L Carbon Dioxide (21-32) mEq/L Anion Gap (5-15) BUN (7-18) mg/dL Creatinine (0.7-1.3) mg/dL Est Cr Clr Drug Dosing mL/min Estimated GFR (MDRD) (>60) mL/min BUN/Creatinine Ratio (14-18) Glucose (70-99) mg/dL POC Glucose 80 (70-99) mg/dL Calcium (8.5-10.1) mg/dL James Results Last 24 Hours: Microbiology 10/12/20 19:47 Wound Culture - Preliminary Ankle, Right Beta Streptococcus Group B 10/12/20 15:05 Aerobic Blood Culture - Preliminary Blood - Venous - Lab Draw NO GROWTH AFTER 1 DAY Anaerobic Blood Culture - Preliminary NO GROWTH AFTER 1 DAY 10/12/20 15:10 Aerobic Blood Culture - Preliminary Blood - Venous NO GROWTH AFTER 1 DAY Anaerobic Blood Culture - Preliminary NO GROWTH AFTER 1 DAY Med Orders - Current: Current Medications Acetaminophen (Acetaminophen 325 Mg Tab) 650 mg PO Q4H PRN PRN Reason: Pain (Mild 1-3)/fever Albuterol/Ipratropium (Albuterol/Ipratropium 3.0-0.5 Mg/3 Ml Neb Soln) 3 ml NEB Q4H PRN PRN Reason: Shortness Of Breath/wheezing Amitriptyline HCl (Amitriptyline 25 Mg Tab) 50 mg PO BEDTIME [facility] Last Admin: 10/13/20 20:39 Dose: 50 mg Documented by: Aspirin (Aspirin 81 Mg Tab.Ec) 81 mg PO Q24H [facility] Last Admin: 10/14/20 09:20 Dose: 81 mg Documented by: Atenolol (Atenolol 50 Mg Tab) 50 mg PO PCDINNER [facility] Last Admin: 10/13/20 18:53 Dose: 50 mg Documented by: Duloxetine HCl (Duloxetine 30 Mg Cap) 60 mg PO Q24H [facility] Last Admin: 10/14/20 09:20 Dose: 60 mg Documented by: Folic Acid (Folic Acid 1 Mg Tab) 1 mg PO DAILY [facility] Last Admin: 10/14/20 09:20 Dose: 1 mg Documented by: Gabapentin (Gabapentin 600 Mg Tab) 600 mg PO BID [facility] Last Admin: 10/14/20 09:20 Dose: 600 mg Documented by: Hydromorphone HCl (Hydromorphone 0.5 Mg/0.5 Ml Syringe) 0.5 mg IVPUSH Q1H PRN PRN Reason: Pain (severe 7-10) Hydroxyzine HCl (Hydroxyzine Hcl 50 Mg Tab) 50 mg PO DAILY [facility] Last Admin: 10/14/20 09:20 Dose: 50 mg Documented by: Piperacillin Sod/Tazobactam (Sod 4.5 gm/ Sodium Chloride) 100 mls @ 25 mls/hr IV Q8H [facility] Last Admin: 10/14/20 06:11 Dose: 25 mls/hr Documented by: Vancomycin HCl 1 gm/Vancomycin HCl 500 mg/ Sodium Chloride 500 mls @ 250 mls/hr IV Q8H [facility] Last Admin: 10/14/20 03:27 Dose: 250 mls/hr Documented by: Insulin Human Lispro (Insulin Lispro 100 Unit/Ml 10 Ml Vial) 0 unit SUBCUT QIDACANDBED [facility]; Protocol Last Admin: 10/14/20 06:30 Dose: Not Given Documented by: Miscellaneous Information (Remove Nicotine 14 Mg Patch) 1 ea TRDERM DAILY@1900 [facility] Last Admin: 10/13/20 18:49 Dose: Not Given Documented by: Niacin (Niacin 500 Mg Tab.Er) 1,000 mg PO DAILY [facility] Last Admin: 10/14/20 09:20 Dose: 1,000 mg Documented by: Nicotine (Nicotine 14 Mg/24 Hr Patch) 14 mg TRDERM DAILY@1900 [facility] Last Admin: 10/13/20 18:49 Dose: Not Given Documented by: Ondansetron HCl (Ondansetron 4 Mg Tab.Dis) 4 mg PO Q4H PRN PRN Reason: nausea, able to take PO Ondansetron HCl (Ondansetron 4 Mg/2 Ml Sdv) 4 mg IV Q6H PRN PRN Reason: Nausea/Vomiting Last Admin: 10/13/20 19:57 Dose: 4 mg Documented by: Oxycodone HCl (Oxycodone 5 Mg Tab) 5 mg PO Q4H PRN PRN Reason: Pain (moderate 4-6) Last Admin: 10/13/20 20:40 Dose: 5 mg Documented by: Quetiapine Fumarate (Quetiapine 100 Mg Tab) 300 mg PO Q24H [facility] Last Admin: 10/13/20 20:39 Dose: 300 mg Documented by: Rosuvastatin Calcium (Rosuvastatin 10 Mg Tab) 20 mg PO BEDTIME [facility] Last Admin: 10/13/20 20:39 Dose: 20 mg Documented by: Sodium Chloride (Sodium Chloride 0.9% 10 Ml Syringe) 10 ml FLUSH ASDIRECTED PRN PRN Reason: Keep Vein Open Last Admin: 10/12/20 15:20 Dose: 10 ml Documented by: Temazepam (Temazepam 7.5 Mg Cap) 7.5 mg PO BEDTIME PRN PRN Reason: Sleep Vancomycin HCl (Pharmacy To Dose - Vancomycin) 1 dose .XX ASDIRECTED PRN PRN Reason: RX TO DOSE Discontinued Medications Aspirin (Aspirin 81 Mg Tab.Ec) 81 mg PO Q24H [facility] Last Admin: 10/13/20 08:20 Dose: 81 mg Documented by: Duloxetine HCl (Duloxetine 30 Mg Cap) 60 mg PO Q24H [facility] Last Admin: 10/13/20 08:19 Dose: 60 mg Documented by: Gabapentin (Gabapentin 300 Mg Cap) 300 mg PO BID [facility] Last Admin: 10/13/20 08:20 Dose: 300 mg Documented by: Gabapentin (Gabapentin 600 Mg Tab) 600 mg PO BID [facility] Last Admin: 10/13/20 20:40 Dose: 600 mg Documented by: Gadobenate Dimeglumine (Gadobenate Dimeglumine 529 Mg/Ml 20 Ml Sdv) 20 ml IVPUSH ONETIME ONE Stop: 10/13/20 12:36 Last Admin: 10/13/20 12:46 Dose: 20 ml Documented by: Heparin Sodium (Porcine) (Heparin Sodium 5,000 Units/Ml Vial) 5,000 units SUBCUT Q8H [facility] Last Admin: 10/13/20 05:01 Dose: 5,000 units Documented by: Hydromorphone HCl (Hydromorphone 1 Mg/Ml Syringe) 1 mg IVPUSH ONETIME ONE Stop: 10/12/20 16:02 Last Admin: 10/12/20 16:07 Dose: 1 mg Documented by: Hydromorphone HCl (Hydromorphone 0.5 Mg/0.5 Ml Syringe) 0.5 mg IVPUSH ONETIME ONE Stop: 10/12/20 17:48 Last Admin: 10/12/20 17:52 Dose: 0.5 mg Documented by: Sodium Chloride (Normal Saline) 1,000 mls @ 150 mls/hr IV ASDIRECTED [facility] Last Admin: 10/12/20 15:20 Dose: 150 mls/hr Documented by: Linezolid 600 mg/ Premix 300 mls @ 300 mls/hr IV ONETIME ONE Stop: 10/12/20 15:47 Last Admin: 10/12/20 15:19 Dose: 300 mls/hr Documented by: Piperacillin Sod/Tazobactam (Sod 3.375 gm/ Sodium Chloride) 100 mls @ 25 mls/hr IV Q8H [facility] Last Admin: 10/12/20 20:25 Dose: Not Given Documented by: Magnesium Sulfate/Dextrose 1 (gm/ Premix) 100 mls @ 100 mls/hr IV Q1H [facility] Stop: 10/12/20 21:19 Last Admin: 10/12/20 21:24 Dose: 100 mls/hr Documented by: Piperacillin Sod/Tazobactam (Sod 4.5 gm/ Sodium Chloride) 100 mls @ 200 mls/hr IV ONETIME ONE Stop: 10/12/20 20:59 Last Admin: 10/12/20 20:21 Dose: 200 mls/hr Documented by: Piperacillin Sod/Tazobactam (Sod 3.375 gm/ Sodium Chloride) 100 mls @ 25 mls/hr IV Q8H [facility] Vancomycin HCl 1,500 mg/ (Sodium Chloride) 500 mls @ 333.333 mls/hr IV Q8H [facility] Last Admin: 10/13/20 05:00 Dose: 333.333 mls/hr Documented by: Sodium Chloride (Normal Saline) Confirm Administered Dose 500 mls @ as directed .ROUTE .STK-MED ONE Stop: 10/13/20 04:52 Last Admin: 10/13/20 05:01 Dose: Not Given Documented by: Ondansetron HCl (Ondansetron 4 Mg/2 Ml Sdv) 4 mg IVPUSH ONETIME ONE Stop: 10/12/20 16:02 Last Admin: 10/12/20 16:06 Dose: 4 mg Documented by: Sodium Chloride (Sodium Chloride 0.9% 10 Ml Syringe) 20 ml FLUSH ASDIRECTED [facility] Stop: 10/13/20 14:00 Last Admin: 10/13/20 12:46 Dose: 20 ml Documented by: Vancomycin HCl (Vancomycin 500 Mg Sdv) Confirm Administered Dose 1,500 mg .ROUTE .STK-MED ONE Stop: 10/13/20 04:51 Last Admin: 10/13/20 05:02 Dose: Not Given Documented by: - Exam General: Alert Lungs: Clear to Auscultation Cardiovascular: Regular Rate, Regular Rhythm GI/Abdominal Exam: Normal Bowel Sounds, Soft, Non-Tender, No Distention Extremities: Normal Inspection Wound/Incisions: Dressing Dry and Intact, Drainage Psy/Mental Status: Normal Mood - Patient Data Lab Results Last 24 hrs: Laboratory Results - last 24 hr 10/13/20 10/13/20 10/13/20 Range/Units 11:05 17:00 20:46 WBC (4.23-9.07) K/mm3 RBC (4.63-6.08) M/mm3 Hgb (13.7-17.5) gm/dl Hct (40.1-51.0) % MCV (79.0-92.2) fl MCH (25.7-32.2) pg MCHC (32.2-35.5) g/dl RDW Std Deviation (35.1-43.9) fL Plt Count (163-337) K/mm3 MPV (9.4-12.3) fl Neut % (Auto) (34.0-67.9) % Lymph % (Auto) (21.8-53.1) % [place] % (Auto) (5.3-12.2) % Eos % (Auto) (0.8-7.0) Baso % (Auto) (0.1-1.2) % Neut # (Auto) (1.78-5.38) K/mm3 Lymph # (Auto) (1.32-3.57) K/mm3 [place] # (Auto) (0.30-0.82) K/mm3 Eos # (Auto) (0.04-0.54) K/mm3 Baso # (Auto) (0.01-0.08) K/mm3 Manual Slide Review Sodium (136-145) mEq/L Potassium (3.5-5.1) mEq/L Chloride (98-107) mEq/L Carbon Dioxide (21-32) mEq/L Anion Gap (5-15) BUN (7-18) mg/dL Creatinine (0.7-1.3) mg/dL Est Cr Clr Drug Dosing mL/min Estimated GFR (MDRD) (>60) mL/min BUN/Creatinine Ratio (14-18) Glucose (70-99) mg/dL POC Glucose 116 H 77 84 (70-99) mg/dL Calcium (8.5-10.1) mg/dL 10/14/20 10/14/20 10/14/20 Range/Units 06:14 06:41 06:41 WBC 3.28 L (4.23-9.07) K/mm3 RBC 3.17 L (4.63-6.08) M/mm3 Hgb 11.8 L (13.7-17.5) gm/dl Hct 35.2 L (40.1-51.0) % MCV 111.0 H (79.0-92.2) fl MCH 37.2 H (25.7-32.2) pg MCHC 33.5 (32.2-35.5) g/dl RDW Std Deviation 68.9 H (35.1-43.9) fL Plt Count 75 L (163-337) K/mm3 MPV 9.2 L (9.4-12.3) fl Neut % (Auto) 61.9 (34.0-67.9) % Lymph % (Auto) 31.1 (21.8-53.1) % [place] % (Auto) 4.3 L (5.3-12.2) % Eos % (Auto) 2.4 (0.8-7.0) Baso % (Auto) 0.3 (0.1-1.2) % Neut # (Auto) 2.03 (1.78-5.38) K/mm3 Lymph # (Auto) 1.02 L (1.32-3.57) K/mm3 [place] # (Auto) 0.14 L (0.30-0.82) K/mm3 Eos # (Auto) 0.08 (0.04-0.54) K/mm3 Baso # (Auto) 0.01 (0.01-0.08) K/mm3 Manual Slide Review Abnormal smear Sodium 136 (136-145) mEq/L Potassium 3.5 (3.5-5.1) mEq/L Chloride 103 (98-107) mEq/L Carbon Dioxide 24 (21-32) mEq/L Anion Gap 12.5 (5-15) BUN 8 (7-18) mg/dL Creatinine 0.9 (0.7-1.3) mg/dL Est Cr Clr Drug Dosing 81.83 mL/min Estimated GFR (MDRD) > 60 (>60) mL/min BUN/Creatinine Ratio 8.9 L (14-18) Glucose 86 (70-99) mg/dL POC Glucose 69 L (70-99) mg/dL Calcium 7.9 L (8.5-10.1) mg/dL 10/14/20 Range/Units 06:51 WBC (4.23-9.07) K/mm3 RBC (4.63-6.08) M/mm3 Hgb (13.7-17.5) gm/dl Hct (40.1-51.0) % MCV (79.0-92.2) fl MCH (25.7-32.2) pg MCHC (32.2-35.5) g/dl RDW Std Deviation (35.1-43.9) fL Plt Count (163-337) K/mm3 MPV (9.4-12.3) fl Neut % (Auto) (34.0-67.9) % Lymph % (Auto) (21.8-53.1) % [place] % (Auto) (5.3-12.2) % Eos % (Auto) (0.8-7.0) Baso % (Auto) (0.1-1.2) % Neut # (Auto) (1.78-5.38) K/mm3 Lymph # (Auto) (1.32-3.57) K/mm3 [place] # (Auto) (0.30-0.82) K/mm3 Eos # (Auto) (0.04-0.54) K/mm3 Baso # (Auto) (0.01-0.08) K/mm3 Manual Slide Review Sodium (136-145) mEq/L Potassium (3.5-5.1) mEq/L Chloride (98-107) mEq/L Carbon Dioxide (21-32) mEq/L Anion Gap (5-15) BUN (7-18) mg/dL Creatinine (0.7-1.3) mg/dL Est Cr Clr Drug Dosing mL/min Estimated GFR (MDRD) (>60) mL/min BUN/Creatinine Ratio (14-18) Glucose (70-99) mg/dL POC Glucose 80 (70-99) mg/dL Calcium (8.5-10.1) mg/dL Result Diagrams: 10/14/20 06:41 10/14/20 06:41 James Results Last 24 hrs: Microbiology 10/12/20 19:47 Wound Culture - Preliminary Ankle, Right Beta Streptococcus Group B 10/12/20 15:05 Aerobic Blood Culture - Preliminary Blood - Venous - Lab Draw NO GROWTH AFTER 1 DAY Anaerobic Blood Culture - Preliminary NO GROWTH AFTER 1 DAY 10/12/20 15:10 Aerobic Blood Culture - Preliminary Blood - Venous NO GROWTH AFTER 1 DAY Anaerobic Blood Culture - Preliminary NO GROWTH AFTER 1 DAY Sepsis Event Note - Evaluation Sepsis Screening Result: No Definite Risk - Focused Exam Vital Signs: Vital Signs Temp Pulse Resp BP Pulse Ox 10/14/20 07:33 88 94 L 10/14/20 07:32 97.7 F 83 16 116/70 89 L 10/14/20 05:48 98.2 F 62 14 123/78 88 L - Problem List Review Problem List Initiated/Reviewed/Updated: Yes - Plan Plan:: Assessment: This is a 64M with hx of Type II DM (A1c 7.1), CAD, COPD, BPH, Peripheral neuropathy [facility] for evaluation of right heal ulcer/diabetic foot ulcer with concerns for cellulitis. He presented to ED where CT right lower extremity was obtained showing Large posterior skin defect, the achilles tendon may be exposed or nearly exposed. Diffuse subcutaneous edema throughout the field of view particularly on the dorsum. Question cellulitis, lymphedema, venous stasis. no bone destruction. He was started on linezolid and admitted for further evaluation. 1. SIRS syndrome (Tachycardia; fever) Diabetic foot ulcer/cellulitis of right ankle/heal -continue zosyn -continue vanco pharm to dose till sensitivities have resulted. -Surgery was consulted and there is no need for their involvement currently. He will be seen in the clinic. -f/u Cx data available and will tailor antibiotic therapy as appropriate -MRI with IV contrast negative for osteomyelitis -Continue wound care. 2. Hx of COPD 3. Hx of Type II DM A1c 7.1; hold metformin 4. Hx of peripheral neuropathy 5. Hx of BPH 6. Hx of chronic pain Syndrome 7. Hx of CAD 8. Hx of Psoriasis 9. Tobacco use disorder 10. Acute on chronic Thrombocytopenia; platelet worsening; subcutaneous heparin which was being given for prophylaxis was discontinued. Code Status-Full Code DVT ppx-SCD Disposition-Likely Dc to home and culture data available.
[2020-10-14] MEDS: Nicotine 14 MG/24 Hr Patch TRDERM SCH (18:05)
[2020-10-14] MEDS: Atenolol 50 MG Tab PO SCH (18:06)
[2020-10-14] MEDS: Amitriptyline 25 MG Tab PO SCH (20:13)
[2020-10-14] MEDS: Rosuvastatin 10 MG Tab PO SCH (20:13)
[2020-10-14] MEDS: QUEtiapine 100 MG Tab PO SCH (20:14)
[2020-10-15] MEDS: Piperacillin/Tazobactam 4.5 GM in Sodium Chloride 0.9% 100 ML IV SCH (06:14)
--- NOTE | 2020-10-15 08:20 | PCM.DCSUM1 ---
Discharge Summary - Hospital Course Free Text/Narrative:: Assessment: This is a 64M with hx of Type II DM (A1c 7.1), CAD, COPD, BPH, Peripheral neuropathy resented from [facility] for evaluation of right heal ulcer/diabetic foot ulcer with concerns for cellulitis. He presented to ED where CT right lower extremity was obtained showing Large posterior skin defect, the achilles tendon may be exposed or nearly exposed. Diffuse subcutaneous edema throughout the field of view particularly on the dorsum. Question cellulitis, lymphedema, venous stasis. no bone destruction. He was started on linezolid and admitted for further evaluation. 1. SIRS syndrome (Tachycardia; fever) Diabetic foot ulcer/cellulitis of right ankle/heal -He was placed on empiric antibiotics with vancomycin and Zosyn. -Mycin was discontinued on 10/14/2020 as Staph aureus was not identified. -Surgery was consulted and there is no need for their involvement. He will be seen in the clinic. Cheek wound care was applied throughout his short admission. Cultures and sensitivities were notable for beta-hemolytic Streptococcus species. Sensitivities indicated good response to penicillin. The patient was transitioned to Augmentin to complete a complete course of 14 days at the time of discharge. Prescription has been provided. 2. Hx of COPD 3. Hx of Type II DM A1c 7.1; held metformin in the hospital. Patient was kept on hospital hyperglycemia protocol. 4. Hx of peripheral neuropathy 5. Hx of BPH 6. Hx of chronic pain Syndrome 7. Hx of CAD 8. Hx of Psoriasis 9. Tobacco use disorder Code Status-Full Code DVT ppx-SCD HPI Initial Comments: JAVIER This is a 64M with hx of Type II DM (A1c 7.1), CAD, COPD, BPH, Peripheral neuropathy presenting [facility] for evaluation of right heal ulcer with concerns for cellulitis. The patient states he first developed ulceration on his right ankle/heal about 3 weeks ago. He denies any trauma. Over the last 3 weeks the ulceration progressively worsened. He noted purulent drainage. He endorses neuropathic pain that he describes as sharp pain. He has not had any medical treatment until today. He has not been on any antibiotic therapy. He presented to ED where CT right lower extremity was obtained. He was started on linezolid and admitted for further evaluation. He currently denies chest pain, sob, nausea, vomiting, abdominal pain. ROS: 12 point ROS is negative except as noted in hip PMHX Hx of COPD Hx of Type II DM A1c 7.1 Hx of peripheral neuropathy Hx of BPH Hx of chronic pain Syndrome Hx of CAD Hx of Psoriasis Tobacco use disorder Thrombocytopenia Past Surgical Hx Hx of C5-C6 Fusion Hx of PCI/CAD Stenting Social Hx Lives Alone, retired, [facility], denies active tobacco use, social alcohol consumption Fam Hx noncontributory to current Illness States he does not know Medical Hx of Father and Mother Right Ankle Pain Score (Numeric/FACES): 9 - Related Data Allergies/Adverse Reactions: Allergies Allergy/AdvReac Type Severity Reaction Status Date / Time bee venom protein (honey bee) Allergy Other Verified 10/12/20 18:50 poison oak extract Allergy Other Verified 10/12/20 18:50 Home Medications: Home Meds Amitriptyline [Elavil] 50 mg PO BEDTIME 10/12/20 [History] Aspirin [Halfprin] 81 mg PO Q24H 10/12/20 [History] Cholecalciferol (Vitamin D3) [Vitamin D3] 1,000 mcg PO ASDIRECTED 10/12/20 [History] Cyclobenzaprine [Flexeril] 10 mg PO TID PRN 10/12/20 [History] DULoxetine HCl [Cymbalta] 60 mg PO Q24H 10/12/20 [History] Folic Acid 800 mcg PO DAILY 10/12/20 [History] Gabapentin [Neurontin] 300 mg PO BID 10/12/20 [History] Ibuprofen 400 mg PO DAILY PRN 10/12/20 [History] Methotrexate 20 mg PO WEEKLY 10/12/20 [History] Niacin [Niacin ER] 1,000 mg PO DAILY 10/12/20 [History] Nystatin [Nystatin Crm] 1 applic TOP BID PRN 10/12/20 [History] Patient's Own Medication [Ptom] 15 ml SSPIT Q6H PRN 10/12/20 [History] QUEtiapine Fumarate [Quetiapine Fumarate] 300 mg PO Q24H 10/12/20 [History] Rosuvastatin Calcium 20 mg PO BEDTIME 10/12/20 [History] atenoloL [Tenormin] 50 mg PO PCDINNER 10/12/20 [History] hydrOXYzine HCL [Hydroxyzine HCl] 50 mg PO DAILY 10/12/20 [History] metFORMIN HCl [Glucophage] 1,000 mg PO BIDMEALS 10/12/20 [History] Past Medical History HEENT History: Reports: Other (See Below) Other HEENT History: wear glasses and have upper/lower dentures Cardiovascular History: Reports: Hypertension, GA, Stents Respiratory History: Reports: COPD Gastrointestinal History: Reports: Other (See Below) Other Gastrointestinal History: pt states abdominal hernia Genitourinary History: Reports: BPH Musculoskeletal History: Reports: Osteoarthritis Other Musculoskeletal History: Previous fractured pelvis treated nonoperatively. Severe degenerative arthritis and disc disease cervical spine with cervical spine surgery and patient believes fusion was also done. Psychiatric History: Reports: Addiction, Mood Swings Endocrine/Metabolic History: Reports: Other (See Below) Other Endocrine/Metabolic History: patient states he has been told "his number is getting higher," for diabetes Dermatologic History: Reports: Psoriasis - Infectious Disease History Infectious Disease History: Reports: Chicken Pox, Measles Social & Family History - Family History Family Medical History: No Pertinent Family History - Tobacco Use Tobacco Use Status *Q: Current Every Day Tobacco User Years of Tobacco use: 50 Packs/Tins Daily: 1 - Caffeine Use Caffeine Use: Reports: Coffee - Alcohol Use Days Per Week of Alcohol Use: 7 - Recreational Drug Use Recreational Drug Use: Yes Recreational Drug Type: Reports: Marijuana/Hashish Recreational Drug Use Frequency: Socially - Living Situation & Occupation Living situation: Reports: Single Occupation: Retired H&P Review of Systems - Review of Systems: Review Of Systems: See Below (see above) Exam - Exam Exam: See Below - Vital Signs Vital Signs: Last Vital Signs Temp 98.1 F 10/12/20 18:23 Pulse 103 H 10/12/20 18:23 Resp 16 10/12/20 18:23 BP 139/76 10/12/20 18:23 Pulse Ox 94 L 10/12/20 18:23 Weight: 220 lb - Exam Physical Exam Comments:: Gen: Middle aged male in no acute distress HEENT: NCAT EOMI MMM Neck: supple CV: RRR normal s1 s2 Lungs: CTAB Abd: Soft, nt, nd Neuro: AOX3, CN intact, nonfocal screening exam MSK: age appropriate muscle mass Skin: psoriatic lesions of bilateral knee right heal diabetic ulcer with mild nonpurulent drainage [id number] Ext: 1+ bilateral nonpitting edema Psych: appropriate affect - Discharge Data Discharge Date: 10/15/20 Discharge Disposition: Home, Self-Care 01 Condition: Good - Referral to Home Health Primary Care Physician: Laura Winter NP - Patient Summary/Data Consults: Consultations 10/12/20 18:31 Consult to Case Management/Sustainable Communities Designer [CONS] Routine PT Evaluation and Treatment [CONS] Routine 10/12/20 18:52 Consult to Physical Therapy [PT Evaluation and Treatment] [CONS] Routine 10/12/20 20:00 Consult to Diabetic Nurse Specialist [CONS] Routine Hospital Course: SEE ABOVE... - Patient Instructions Diet: Diabetic Diet Activity: As Tolerated Wound/Incision Care: Keep Operative Site/Wound Site Clean and Dry, Change Dressing Daily Notify Provider of: Fever, Increased Pain, Swelling and Redness, Drainage (increased drianage or bleeding) - Discharge Plan *PRESCRIPTION DRUG MONITORING PROGRAM REVIEWED*: Not Applicable *COPY OF PRESCRIPTION DRUG MONITORING REPORT IN PATIENT MAURI: Not Applicable Prescriptions/Med Rec: Amoxicillin/Clavulanate K [Augmentin 875-125 MG] 1 tab PO BID 11 Days #22 tablet Home Medications: Home Meds Amitriptyline [Elavil] 50 mg PO BEDTIME 10/12/20 [History] Aspirin [Halfprin] 81 mg PO Q24H 10/12/20 [History] Cholecalciferol (Vitamin D3) [Vitamin D3] 1,000 mcg PO ASDIRECTED 10/12/20 [History] Cyclobenzaprine [Flexeril] 10 mg PO TID PRN 10/12/20 [History] DULoxetine HCl [Cymbalta] 60 mg PO Q24H 10/12/20 [History] Folic Acid 800 mcg PO DAILY 10/12/20 [History] Gabapentin [Neurontin] 300 mg PO BID 10/12/20 [History] Ibuprofen 400 mg PO DAILY PRN 10/12/20 [History] Methotrexate 20 mg PO WEEKLY 10/12/20 [History] Niacin [Niacin ER] 1,000 mg PO DAILY 10/12/20 [History] Nystatin [Nystatin Crm] 1 applic TOP BID PRN 10/12/20 [History] Patient's Own Medication [Ptom] 15 ml SSPIT Q6H PRN 10/12/20 [History] QUEtiapine Fumarate [Quetiapine Fumarate] 300 mg PO Q24H 10/12/20 [History] Rosuvastatin Calcium 20 mg PO BEDTIME 10/12/20 [History] atenoloL [Tenormin] 50 mg PO PCDINNER 10/12/20 [History] hydrOXYzine HCL [Hydroxyzine HCl] 50 mg PO DAILY 10/12/20 [History] metFORMIN HCl [Glucophage] 1,000 mg PO BIDMEALS 10/12/20 [History] Amoxicillin/Clavulanate K [Augmentin 875-125 MG] 1 tab PO BID 11 Days #22 tablet 10/15/20 [Rx] Oxygen Therapy Mode: Room Air Patient Handouts: Cellulitis, Adult, [id number], Steps to Quit Smoking, Sepsis, Self Care, Adult Forms: ED Department Discharge Referrals: Laura Winter NP [Primary Care Provider] - - Discharge Summary/Plan Comment DC Time >30 min.: Yes - General Info Date of Service: 10/15/20 Admission Dx/Problem (Free Text: Admission Diagnosis/Problem Admission Diagnosis/Problem Cellulitis. Diabetic foot wound Subjective Update: No acute events overnight. No new specific nursing concerns. Patient does not endorse any new complaints and is anxiously awaiting to go home. - Review of Systems General: Reports: No Symptoms HEENT: Reports: No Symptoms Pulmonary: Reports: No Symptoms Cardiovascular: Reports: No Symptoms Gastrointestinal: Reports: No Symptoms Musculoskeletal: Reports: No Symptoms Skin: Reports: Other (No new symptoms regarding wound.) - Patient Data Vitals - Most Recent: Last Vital Signs Temp 98.2 F 10/14/20 20:10 Pulse 83 10/14/20 20:10 Resp 16 10/14/20 20:10 BP 138/76 10/14/20 20:10 Pulse Ox 98 10/14/20 20:10 Weight - Most Recent: 223 lb 3.2 oz I&O - Last 24 hours: Intake & Output 10/14/20 10/15/20 10/15/20 22:59 06:59 14:59 Intake Total 1015 900 Balance 1015 900 Lab Results - Last 24 hrs: Laboratory Results - last 24 hr 10/14/20 10/14/20 10/14/20 Range/Units 10:59 18:01 20:20 WBC (4.23-9.07) K/mm3 RBC (4.63-6.08) M/mm3 Hgb (13.7-17.5) gm/dl Hct (40.1-51.0) % MCV (79.0-92.2) fl MCH (25.7-32.2) pg MCHC (32.2-35.5) g/dl RDW Std Deviation (35.1-43.9) fL Plt Count (163-337) K/mm3 MPV (9.4-12.3) fl Neut % (Auto) (34.0-67.9) % Lymph % (Auto) (21.8-53.1) % Cobb % (Auto) (5.3-12.2) % Eos % (Auto) (0.8-7.0) Baso % (Auto) (0.1-1.2) % Neut # (Auto) (1.78-5.38) K/mm3 Lymph # (Auto) (1.32-3.57) K/mm3 Cobb # (Auto) (0.30-0.82) K/mm3 Eos # (Auto) (0.04-0.54) K/mm3 Baso # (Auto) (0.01-0.08) K/mm3 Manual Slide Review Sodium (136-145) mEq/L Potassium (3.5-5.1) mEq/L Chloride (98-107) mEq/L Carbon Dioxide (21-32) mEq/L Anion Gap (5-15) BUN (7-18) mg/dL Creatinine (0.7-1.3) mg/dL Est Cr Clr Drug Dosing mL/min Estimated GFR (MDRD) (>60) mL/min BUN/Creatinine Ratio (14-18) Glucose (70-99) mg/dL POC Glucose 111 H 87 76 (70-99) mg/dL Calcium (8.5-10.1) mg/dL 10/14/20 10/15/20 10/15/20 Range/Units 21:24 05:08 05:08 WBC 3.14 L (4.23-9.07) K/mm3 RBC 3.04 L (4.63-6.08) M/mm3 Hgb 11.4 L (13.7-17.5) gm/dl Hct 33.4 L (40.1-51.0) % MCV 109.9 H (79.0-92.2) fl MCH 37.5 H (25.7-32.2) pg MCHC 34.1 (32.2-35.5) g/dl RDW Std Deviation 66.4 H (35.1-43.9) fL Plt Count 63 L (163-337) K/mm3 MPV 9.0 L (9.4-12.3) fl Neut % (Auto) 54.2 (34.0-67.9) % Lymph % (Auto) 33.1 (21.8-53.1) % Cobb % (Auto) 8.6 (5.3-12.2) % Eos % (Auto) 3.8 (0.8-7.0) Baso % (Auto) 0.0 L (0.1-1.2) % Neut # (Auto) 1.70 L (1.78-5.38) K/mm3 Lymph # (Auto) 1.04 L (1.32-3.57) K/mm3 Cobb # (Auto) 0.27 L (0.30-0.82) K/mm3 Eos # (Auto) 0.12 (0.04-0.54) K/mm3 Baso # (Auto) 0.00 L (0.01-0.08) K/mm3 Manual Slide Review Abnormal smear Sodium 143 (136-145) mEq/L Potassium 3.9 (3.5-5.1) mEq/L Chloride 107 (98-107) mEq/L Carbon Dioxide 26 (21-32) mEq/L Anion Gap 13.9 (5-15) BUN 6 L (7-18) mg/dL Creatinine 0.8 (0.7-1.3) mg/dL Est Cr Clr Drug Dosing 92.06 mL/min Estimated GFR (MDRD) > 60 (>60) mL/min BUN/Creatinine Ratio 7.5 L (14-18) Glucose 89 (70-99) mg/dL POC Glucose 116 H (70-99) mg/dL Calcium 8.5 (8.5-10.1) mg/dL 10/15/20 Range/Units 06:24 WBC (4.23-9.07) K/mm3 RBC (4.63-6.08) M/mm3 Hgb (13.7-17.5) gm/dl Hct (40.1-51.0) % MCV (79.0-92.2) fl MCH (25.7-32.2) pg MCHC (32.2-35.5) g/dl RDW Std Deviation (35.1-43.9) fL Plt Count (163-337) K/mm3 MPV (9.4-12.3) fl Neut % (Auto) (34.0-67.9) % Lymph % (Auto) (21.8-53.1) % Cobb % (Auto) (5.3-12.2) % Eos % (Auto) (0.8-7.0) Baso % (Auto) (0.1-1.2) % Neut # (Auto) (1.78-5.38) K/mm3 Lymph # (Auto) (1.32-3.57) K/mm3 Cobb # (Auto) (0.30-0.82) K/mm3 Eos # (Auto) (0.04-0.54) K/mm3 Baso # (Auto) (0.01-0.08) K/mm3 Manual Slide Review Sodium (136-145) mEq/L Potassium (3.5-5.1) mEq/L Chloride (98-107) mEq/L Carbon Dioxide (21-32) mEq/L Anion Gap (5-15) BUN (7-18) mg/dL Creatinine (0.7-1.3) mg/dL Est Cr Clr Drug Dosing mL/min Estimated GFR (MDRD) (>60) mL/min BUN/Creatinine Ratio (14-18) Glucose (70-99) mg/dL POC Glucose 81 (70-99) mg/dL Calcium (8.5-10.1) mg/dL MEHNAZ Results - Last 24 hrs: Microbiology 10/12/20 19:47 Wound Culture - Preliminary Ankle, Right Beta Streptococcus Group B 10/12/20 15:05 Aerobic Blood Culture - Preliminary Blood - Venous - Lab Draw NO GROWTH AFTER 2 DAYS Anaerobic Blood Culture - Preliminary NO GROWTH AFTER 2 DAYS 10/12/20 15:10 Aerobic Blood Culture - Preliminary Blood - Venous NO GROWTH AFTER 2 DAYS Anaerobic Blood Culture - Preliminary NO GROWTH AFTER 2 DAYS Med Orders - Current: Current Medications Acetaminophen (Acetaminophen 325 Mg Tab) 650 mg PO Q4H PRN PRN Reason: Pain (Mild 1-3)/fever Albuterol/Ipratropium (Albuterol/Ipratropium 3.0-0.5 Mg/3 Ml Neb Soln) 3 ml NEB Q4H PRN PRN Reason: Shortness Of Breath/wheezing Amitriptyline HCl (Amitriptyline 25 Mg Tab) 50 mg PO BEDTIME [facility] Last Admin: 10/14/20 20:13 Dose: 50 mg Documented by: Aspirin (Aspirin 81 Mg Tab.Ec) 81 mg PO Q24H [facility] Last Admin: 10/14/20 09:20 Dose: 81 mg Documented by: Atenolol (Atenolol 50 Mg Tab) 50 mg PO PCDINNER [facility] Last Admin: 10/14/20 18:06 Dose: 50 mg Documented by: Duloxetine HCl (Duloxetine 30 Mg Cap) 60 mg PO Q24H [facility] Last Admin: 10/14/20 09:20 Dose: 60 mg Documented by: Folic Acid (Folic Acid 1 Mg Tab) 1 mg PO DAILY [facility] Last Admin: 10/14/20 09:20 Dose: 1 mg Documented by: Gabapentin (Gabapentin 600 Mg Tab) 600 mg PO BID [facility] Last Admin: 10/14/20 20:13 Dose: 600 mg Documented by: Hydromorphone HCl (Hydromorphone 0.5 Mg/0.5 Ml Syringe) 0.5 mg IVPUSH Q1H PRN PRN Reason: Pain (severe 7-10) Hydroxyzine HCl (Hydroxyzine Hcl 50 Mg Tab) 50 mg PO DAILY [facility] Last Admin: 10/14/20 09:20 Dose: 50 mg Documented by: Piperacillin Sod/Tazobactam (Sod 4.5 gm/ Sodium Chloride) 100 mls @ 25 mls/hr IV Q8H [facility] Last Admin: 10/15/20 06:14 Dose: 25 mls/hr Documented by: Insulin Human Lispro (Insulin Lispro 100 Unit/Ml 10 Ml Vial) 0 unit SUBCUT QIDACANDBED [facility]; Protocol Last Admin: 10/14/20 22:10 Dose: Not Given Documented by: Miscellaneous Information (Remove Nicotine 14 Mg Patch) 1 ea TRDERM DAILY@1900 [facility] Last Admin: 10/14/20 18:05 Dose: Not Given Documented by: Niacin (Niacin 500 Mg Tab.Er) 1,000 mg PO DAILY [facility] Last Admin: 10/14/20 09:20 Dose: 1,000 mg Documented by: Nicotine (Nicotine 14 Mg/24 Hr Patch) 14 mg TRDERM DAILY@1900 [facility] Last Admin: 10/14/20 18:05 Dose: Not Given Documented by: Ondansetron HCl (Ondansetron 4 Mg Tab.Dis) 4 mg PO Q4H PRN PRN Reason: nausea, able to take PO Ondansetron HCl (Ondansetron 4 Mg/2 Ml Sdv) 4 mg IV Q6H PRN PRN Reason: Nausea/Vomiting Last Admin: 10/13/20 19:57 Dose: 4 mg Documented by: Oxycodone HCl (Oxycodone 5 Mg Tab) 5 mg PO Q4H PRN PRN Reason: Pain (moderate 4-6) Last Admin: 10/13/20 20:40 Dose: 5 mg Documented by: Quetiapine Fumarate (Quetiapine 100 Mg Tab) 300 mg PO Q24H [facility] Last Admin: 10/14/20 20:14 Dose: 300 mg Documented by: Rosuvastatin Calcium (Rosuvastatin 10 Mg Tab) 20 mg PO BEDTIME [facility] Last Admin: 10/14/20 20:13 Dose: 20 mg Documented by: Sodium Chloride (Sodium Chloride 0.9% 10 Ml Syringe) 10 ml FLUSH ASDIRECTED PRN PRN Reason: Keep Vein Open Last Admin: 10/12/20 15:20 Dose: 10 ml Documented by: Temazepam (Temazepam 7.5 Mg Cap) 7.5 mg PO BEDTIME PRN PRN Reason: Sleep Discontinued Medications Aspirin (Aspirin 81 Mg Tab.Ec) 81 mg PO Q24H [facility] Last Admin: 10/13/20 08:20 Dose: 81 mg Documented by: Duloxetine HCl (Duloxetine 30 Mg Cap) 60 mg PO Q24H [facility] Last Admin: 10/13/20 08:19 Dose: 60 mg Documented by: Gabapentin (Gabapentin 300 Mg Cap) 300 mg PO BID [facility] Last Admin: 10/13/20 08:20 Dose: 300 mg Documented by: Gabapentin (Gabapentin 600 Mg Tab) 600 mg PO BID [facility] Last Admin: 10/13/20 20:40 Dose: 600 mg Documented by: Gadobenate Dimeglumine (Gadobenate Dimeglumine 529 Mg/Ml 20 Ml Sdv) 20 ml IVPUSH ONETIME ONE Stop: 10/13/20 12:36 Last Admin: 10/13/20 12:46 Dose: 20 ml Documented by: Heparin Sodium (Porcine) (Heparin Sodium 5,000 Units/Ml Vial) 5,000 units SUBCUT Q8H [facility] Last Admin: 10/13/20 05:01 Dose: 5,000 units Documented by: Hydromorphone HCl (Hydromorphone 1 Mg/Ml Syringe) 1 mg IVPUSH ONETIME ONE Stop: 10/12/20 16:02 Last Admin: 10/12/20 16:07 Dose: 1 mg Documented by: Hydromorphone HCl (Hydromorphone 0.5 Mg/0.5 Ml Syringe) 0.5 mg IVPUSH ONETIME ONE Stop: 10/12/20 17:48 Last Admin: 10/12/20 17:52 Dose: 0.5 mg Documented by: Sodium Chloride (Normal Saline) 1,000 mls @ 150 mls/hr IV ASDIRECTED [facility] Last Admin: 10/12/20 15:20 Dose: 150 mls/hr Documented by: Linezolid 600 mg/ Premix 300 mls @ 300 mls/hr IV ONETIME ONE Stop: 10/12/20 15:47 Last Admin: 10/12/20 15:19 Dose: 300 mls/hr Documented by: Piperacillin Sod/Tazobactam (Sod 3.375 gm/ Sodium Chloride) 100 mls @ 25 mls/hr IV Q8H [facility] Last Admin: 10/12/20 20:25 Dose: Not Given Documented by: Magnesium Sulfate/Dextrose 1 (gm/ Premix) 100 mls @ 100 mls/hr IV Q1H [facility] Stop: 10/12/20 21:19 Last Admin: 10/12/20 21:24 Dose: 100 mls/hr Documented by: Piperacillin Sod/Tazobactam (Sod 4.5 gm/ Sodium Chloride) 100 mls @ 200 mls/hr IV ONETIME ONE Stop: 10/12/20 20:59 Last Admin: 10/12/20 20:21 Dose: 200 mls/hr Documented by: Piperacillin Sod/Tazobactam (Sod 3.375 gm/ Sodium Chloride) 100 mls @ 25 mls/hr IV Q8H [facility] Vancomycin HCl 1,500 mg/ (Sodium Chloride) 500 mls @ 333.333 mls/hr IV Q8H [facility] Last Admin: 10/13/20 05:00 Dose: 333.333 mls/hr Documented by: Sodium Chloride (Normal Saline) Confirm Administered Dose 500 mls @ as directed .ROUTE .STK-MED ONE Stop: 10/13/20 04:52 Last Admin: 10/13/20 05:01 Dose: Not Given Documented by: Vancomycin HCl 1 gm/Vancomycin HCl 500 mg/ Sodium Chloride 500 mls @ 250 mls/hr IV Q8H [facility] Last Admin: 10/14/20 03:27 Dose: 250 mls/hr Documented by: Ondansetron HCl (Ondansetron 4 Mg/2 Ml Sdv) 4 mg IVPUSH ONETIME ONE Stop: 10/12/20 16:02 Last Admin: 10/12/20 16:06 Dose: 4 mg Documented by: Sodium Chloride (Sodium Chloride 0.9% 10 Ml Syringe) 20 ml FLUSH ASDIRECTED MARINE Stop: 10/13/20 14:00 Last Admin: 10/13/20 12:46 Dose: 20 ml Documented by: Vancomycin HCl (Pharmacy To Dose - Vancomycin) 1 dose .XX ASDIRECTED PRN PRN Reason: RX TO DOSE Vancomycin HCl (Vancomycin 500 Mg Sdv) Confirm Administered Dose 1,500 mg .ROUTE .STK-MED ONE Stop: 10/13/20 04:51 Last Admin: 10/13/20 05:02 Dose: Not Given Documented by: - Exam General: Reports: Alert Lungs: Reports: Clear to Auscultation, Normal Respiratory Effort Cardiovascular: Reports: Regular Rate, Regular Rhythm GI/Abdominal Exam: Normal Bowel Sounds, Soft, Non-Tender Extremities: Normal Inspection, No Pedal Edema Skin: Reports: Other (Wound on lateral aspect of right ankle. Serosanguineous discharge. No bleeding.) Wound/Incisions: Reports: Drainage, Erythema, Erythema Improving *Q Meaningful Use (DIS) - VTE *Q VTE Pharmacological Contraindications *Q: Thrombocytopenia
[2020-10-15] MEDS: Folic Acid 1 MG Tab PO SCH (08:28)
[2020-10-15] MEDS: Niacin 500 MG Tab.ER PO SCH (08:28)
[2020-10-15] MEDS: hydrOXYzine HCl 50 MG Tab PO SCH (08:29)
[2020-10-15] MEDS: Aspirin 81 MG Tab.EC PO SCH (08:29)
[2020-10-15] MEDS: Gabapentin 600 MG Tab PO SCH (08:29)
[2020-10-15] MEDS: DULoxetine 30 MG Cap PO SCH (08:29)
[2020-10-15] MEDS: Insulin Lispro 100 UNIT/ML 10 ML Vial SUBCUT SCH ×2 (10:40→11:36)
== END 2020-10-15 13:14 | disposition home or self-care (01) | DRG 602 ==
LOC: JD.ED 13:59 → JD.MS 18:21
PROVIDERS: ADMIT Hospitalist; ATTEND Hospitalist
DX: L03.115 Cellulitis of right lower limb (principal); L89.613 Pressure ulcer of right heel, stage 3; R60.9 Edema, unspecified; R65.10 Systemic inflammatory response syndrome (SIRS) of non-infectious origin without acute organ dysfunction; L88 Pyoderma gangrenosum; D61.818 Other pancytopenia; I25.10 Atherosclerotic heart disease of native coronary artery without angina pectoris; E11.42 Type 2 diabetes mellitus with diabetic polyneuropathy; I10 Essential (primary) hypertension; Z20.822 Contact with and (suspected) exposure to COVID-19; N40.0 Benign prostatic hyperplasia without lower urinary tract symptoms; M19.90 Unspecified osteoarthritis, unspecified site; F39 Unspecified mood [affective] disorder; D69.6 Thrombocytopenia, unspecified; E11.621 Type 2 diabetes mellitus with foot ulcer; F17.210 Nicotine dependence, cigarettes, uncomplicated; G89.4 Chronic pain syndrome; B95.5 Unspecified streptococcus as the cause of diseases classified elsewhere; Z91.030 Bee allergy status; Z91.048 Other nonmedicinal substance allergy status; Z79.82 Long term (current) use of aspirin; Z79.84 Long term (current) use of oral hypoglycemic drugs; I25.2 Old myocardial infarction; Z95.5 Presence of coronary angioplasty implant and graft; J43.1 Panlobular emphysema; Z95.1 Presence of aortocoronary bypass graft; F10.20 Alcohol dependence, uncomplicated; Z79.899 Other long term (current) drug therapy
CPT/HCPCS: 36415; 71045; 73700; 80053; 80307; 83036; 83605; 83735; 83880; 85007; 85027; 85652; 86140; 87040 ×2; 87635; 93005; 96365; 96375; 96376; 99284; J1170 ×2; J2020; J2405; J7030; 73723-26-RT; 73723-RT; 80048; 80076; 82947; 85025; 87070; 87077; 87186; 93010; 93970; 93970-26; 99222; 99232; 99239; 99285; A9270-GY; A9577; J1644; J2543; J3370; J3475; J7040; U0002

== ENCOUNTER 2024-06-23 08:24 | Emergency (ER) | payer OTHER ==
[2024-06-23] MEDS: Sodium Chloride 0.9% 1,000 ML IV ONE (08:30)
[2024-06-23] MEDS ORDERED: Naloxone 0.4 MG/ML SDV IVPUSH PRN (08:33)
[2024-06-23 08:49] LABS: BASOPHILS ABSOLUTE AUTO 0.1 K/mm3 (0.0-0.2); BASOPHILS PERCENT AUTO 0.6 % (0.0-1.0); EOSINOPHILS ABSOLUTE AUTO 0.3 K/mm3 (0.0-0.4); EOSINOPHILS PERCENT AUTO 2.4 % (0.0-6.0); HEMATOCRIT 45.7 % (42.0-52.0); HEMOGLOBIN 15.2 gm/dl (14.0-18.0); IMMATURE GRAN ABSOLUTE AUTO 0.03 K/mm3 (0.00-0.05); IMMATURE GRAN PERCENT AUTO 0.3 % (0.0-0.4); LYMPHOCYTES ABSOLUTE AUTO 2.3 K/mm3 (1.0-4.8); LYMPHOCYTES PERCENT AUTO 22.5 % (24.0-44.0); MEAN CORPUSCULAR HEMOGLOBIN 29.9 pg (28.0-32.0); MEAN CORPUSCULAR HGB CONC 33.3 g/dl (32.0-36.0); MEAN PLATELET VOLUME 8.8 fl (9.4-12.4); MONOCYTES ABSOLUTE AUTO 0.7 K/mm3 (0.0-0.8); MONOCYTES PERCENT AUTO 6.3 % (0.0-8.0); NEUTROPHILS PERCENT AUTO 67.9 % (41.0-71.0); PLATELET COUNT,PLT 138 K/mm3 (150-400); RED BLOOD CELL COUNT 5.08 M/mm3 (4.52-5.90); WHITE BLOOD CELL COUNT,WBC 10.27 K/mm3 (3.9-11.3)
[2024-06-23] MEDS: Nitroglycerin 0.4 MG Tab.SL SL ONE (09:08)
[2024-06-23] MEDS: Morphine 2 MG/ML SYRINGE IVPUSH ONE (09:13)
[2024-06-23 09:21] LABS: A/G RATIO 0.9 (1-2); ALBUMIN 3.5 g/dl (3.4-5.0); BILIRUBIN TOTAL 0.4 mg/dL (0.2-1.0); BUN/CREATININE RATIO 6.9 (14-18); CALCIUM 8.8 mg/dL (8.5-10.1); CREATININE 1.3 mg/dL (0.7-1.3); EST CRCL DRUG DOSING (CG) 53.63 mL/min; MAGNESIUM 1.7 mg/dL (1.8-2.4); PROTEIN TOTAL,TP 7.3 g/dl (6.4-8.2)
[2024-06-23 09:22] LABS: PROTHROMBIN TIME 9.8 SECONDS (9.7-12.0)
[2024-06-23] MEDS: Heparin Sodium 5,000 Units/ML Vial IVPUSH ONE (09:42)
[2024-06-23] MEDS: Nitroglycerin 2% Oint 1 GM UD Packet TOP ONE (09:43)
[2024-06-23] MEDS: Heparin Sodium/D5W 250 ML IV SCH (09:51)
[2024-06-23 10:15] LABS: INR < 0.93
[2024-06-23] MEDS ORDERED: Magnesium Sulfate (4.06 MEQ/ML) 5 GM/10 ML SDV IV STA (10:33)
[2024-06-23] MEDS: Magnesium Sulf/Wat 4 GM/50 mL 4 GM in Premix Bag 1 BAG IV ONE (11:20)
[2024-06-23] MEDS: Magnesium Sulf/Wat 2 GM/50 mL 2 GM in Premix Bag 1 BAG IV ONE (11:20)
== END 2024-06-23 11:25 ==
LOC: JD.ED 08:24
DX: I25.10 Atherosclerotic heart disease of native coronary artery without angina pectoris (principal); I24.9 Acute ischemic heart disease, unspecified; N28.9 Disorder of kidney and ureter, unspecified; E83.42 Hypomagnesemia; I10 Essential (primary) hypertension; I25.2 Old myocardial infarction; F17.200 Nicotine dependence, unspecified, uncomplicated; Z95.5 Presence of coronary angioplasty implant and graft; Z91.013 Allergy to seafood; Z91.018 Allergy to other foods; Z79.82 Long term (current) use of aspirin; Z79.899 Other long term (current) drug therapy
CPT/HCPCS: 36415; 71045; 80053; 82550; 83690; 83735; 83880; 84484; 85025; 85610; 87428; 93005; 96365; 96366; 96375; 99285; A9270; J1644; J2270; J3475; J7030; 93010